=== PATIENT | female | born 1960 | race Two or more races ===

== ENCOUNTER 2018-10-04 15:19 | Emergency (ER) | payer BC ==
[~2018-10-04] VITALS: Ht 147.3 cm; Wt 61.2 kg
--- OUTSIDE RECORDS SUMMARY | 2018-10-04 15:22 | XMS REPORT ---
Author Author [facility] Address Unknown Phone Unavailable Care Team Providers Care Director Check Name Role Phone ARACELY SMITH PP Unavailable GRANT GARNICA Unavailable Unavailable Payers Payer Name Policy Type Policy Number Effective Date Expiration Date Problems This patient has no known problems. Allergies, Adverse Reactions, Alerts Allergy Name Allergy Type Status Severity Reaction(s) Onset Date Inactive Date Treating Clinician Comments No Known Allergies DA Active U 2017-10-31 00:00:00 Medications This patient has no known medications. Results Test Description Test Time Test Comments Text Results Atomic Results Result Comments URINALYSIS COMPLETE 2018-04-29 05:06:00 UA COLOR (test code=COLU) LIGHT YELLOW YELLOW UA APPEARANCE (test code=APPU) CLEAR CLEAR UA GLUCOSE DIPSTICK (test code=DGLUU) NEGATIVE mg/dL NEGATIVE UA BILIRUBIN DIPSTICK (test code=BILU) NEGATIVE mg/dL NEGATIVE UA KETONE DIPSTICK (test code=KETU) Negative mg/dL NEGATIVE UA SPECIFIC GRAVITY (test code=SGU) 1.014 1.001-1.035 UA BLOOD DIPSTICK (test code=THAIS) 2+ (Moderate) NEGATIVE UA PH DIPSTICK (test code=MONTSE) 5.0 5.0-8.0 UA PROTEIN DIPSTICK (test code=PROU) Negative mg/dL NEGATIVE UA UROBILINIOGEN DIPSTICK (test code=URO) NEGATIVE mg/dL NEGATIVE UA NITRITE DIPSTICK (test code=ROSI) NEGATIVE NEGATIVE UA LEUKOCYTE ESTERASE W REFLEX (test code=LEUUR) NEGATIVE NEGATIVE UA WBC (test code=WBCU) 0-5 #/HPF 0-5 UA RBC (test code=RBCU) 10-15 #/HPF 0-5 UA EPITHELIAL CELLS (test code=EPIU) FEW per HPF FEW UA BACTERIA (test code=BACU) FEW #/HPF NONE UA HYALINE CAST (test code=HYALU) 0-2 #/LPF 0-5 UA MUCUS (test code=MUCU) FEW #/LPF FEW Urine Source? Clean CatchB-TYPE NATRIURETIC [id number] 04:15:00* Test Item Value Reference Range Comments B-TYPE NATRIURETIC PEPTIDE (test code=BNP) 16.86 pgram/mL 0-100 BASIC METABOLIC [id number] 04:09:00* Test Item Value Reference Range Comments SODIUM (test code=NA) 142 mmol/L 136-145 POTASSIUM (test code=K) 3.4 mmol/L 3.5-5.1 CHLORIDE (test code=CL) 107.0 mmol/L 98-107 CARBON DIOXIDE (test code=CO2) 26.0 mmol/L 21-32 ANION GAP (test code=GAP) 12.4 10-20 GLUCOSE (test code=GLU) 105 mg/dL 74-106 BLOOD UREA NITROGEN (test code=BUN) 19 mg/dL 7-18 GLOMERULAR FILTRATION RATE (test code=GFR) > 60 mL/min >=60 Estimated GFR by using Modified MDRD formula.Chronic kidney disease is defined as either kidney damageor GFR <60 mL/min/1.73 m2 for >3 months. CREATININE (test code=CREAT) 0.60 mg/dL 0.55-1.02 Note change in reference range due to change in reagent. BUN/CREATININE RATIO (test code=BUN/CREA) 31.7 10-20 CALCIUM (test code=CA) 9.1 mg/dL 8.5-10.1 [id number] 04:09:00* Test Item Value Reference Range Comments CKMB (test code=CKMBT) < 1.0 ng/mL 0-6.0 [id number] 04:09:00* Test Item Value Reference Range Comments TROPONIN-I (test code=TROPI) <0.015 ng/mL 0-0.045 BASIC METABOLIC [id number] 03:59:00* Test Item Value Reference Range Comments SODIUM (test code=NA) 142 mmol/L 136-145 POTASSIUM (test code=K) 3.4 mmol/L 3.5-5.1 CHLORIDE (test code=CL) 107.0 mmol/L 98-107 CARBON DIOXIDE (test code=CO2) mmol/L 21-32 ANION GAP (test code=GAP) 10-20 GLUCOSE (test code=GLU) mg/dL 74-106 BLOOD UREA NITROGEN (test code=BUN) mg/dL 7-18 GLOMERULAR FILTRATION RATE (test code=GFR) mL/min >=60 CREATININE (test code=CREAT) mg/dL 0.55-1.02 BUN/CREATININE RATIO (test code=BUN/CREA) 10-20 CALCIUM (test code=CA) 9.1 mg/dL 8.5-10.1 [id number] 03:59:00* Test Item Value Reference Range Comments CKMB (test code=CKMBT) ng/mL 0-6.0 [id number] 03:59:00* Test Item Value Reference Range Comments TROPONIN-I (test code=TROPI) ng/mL 0-0.045 CBC W/AUTO [id number] 03:53:00* Test Item Value Reference Range Comments WHITE BLOOD CELL (test code=WBC) 7.4 K/mm3 4.5-12.5 RED BLOOD CELL (test code=RBC) 4.73 mill/mm3 3.7-5.2 HEMOGLOBIN (test code=HGB) 12.5 gram/dL 11.5-15.5 HEMATOCRIT (test code=HCT) 41.1 % 36.0-46.0 MEAN CELL VOLUME (test code=MCV) 86.9 fL 80-98 MEAN CELL HGB (test code=MCH) 26.4 picogram 27.0-33.0 MEAN CELL HGB CONCETRATION (test code=MCHC) 30.4 gram/dL 33.0-36.0 RED CELL DISTRIBUTION WIDTH (test code=RDW) 13.2 % 11.6-16.2 RED CELL DISTRIBUTION WIDTH SD (test code=RDW-SD) 41.6 fL 37.0-51.0 PLATELET COUNT (test code=PLT) 318 K/mm3 150-450 MEAN PLATELET VOLUME (test code=MPV) 10.3 fL 6.7-11.0 NEUTROPHIL % (test code=NT%) 52.2 % 39.0-69.0 IMMATURE GRANULOCYTE % (test code=IG%) 0.3 % 0.0-5.0 LYMPHOCYTE % (test code=LY%) 37.9 % 25.0-55.0 MONOCYTE % (test code=MO%) 6.5 % 0.0-10.0 EOSINOPHIL % (test code=EO%) 2.7 % 0.0-5.0 BASOPHIL % (test code=BA%) 0.4 % 0.0-1.0 NUCLEATED RBC % (test code=NRBC%) 0.0 % 0-0 NEUTROPHIL # (test code=NT#) 3.85 K/mm3 1.8-7.7 IMMATURE GRANULOCYTE # (test code=IG#) 0.02 x10 3/uL 0-0.03 LYMPHOCYTE # (test code=LY#) 2.80 K/mm3 1.0-5.0 MONOCYTE # (test code=MO#) 0.48 K/mm3 0-0.8 EOSINOPHIL # (test code=EO#) 0.20 K/mm3 0.0-0.5 BASOPHIL # (test code=BA#) 0.03 K/mm3 0.0-0.2 NUCLEATED RBC # (test code=NRBC#) 0.00 K/mm3 0.0-0.1 CBC W/AUTO [id number] 03:46:00* Test Item Value Reference Range Comments WHITE BLOOD CELL (test code=WBC) K/mm3 4.5-12.5 RED BLOOD CELL (test code=RBC) mill/mm3 3.7-5.2 HEMOGLOBIN (test code=HGB) 12.5 gram/dL 11.5-15.5 HEMATOCRIT (test code=HCT) 41.1 % 36.0-46.0 MEAN CELL VOLUME (test code=MCV) fL 80-98 MEAN CELL HGB (test code=MCH) picogram 27.0-33.0 MEAN CELL HGB CONCETRATION (test code=MCHC) gram/dL 33.0-36.0 RED CELL DISTRIBUTION WIDTH (test code=RDW) % 11.6-16.2 RED CELL DISTRIBUTION WIDTH SD (test code=RDW-SD) fL 37.0-51.0 PLATELET COUNT (test code=PLT) K/mm3 150-450 MEAN PLATELET VOLUME (test code=MPV) fL 6.7-11.0 NEUTROPHIL % (test code=NT%) % 39.0-69.0 IMMATURE GRANULOCYTE % (test code=IG%) % 0.0-5.0 LYMPHOCYTE % (test code=LY%) % 25.0-55.0 MONOCYTE % (test code=MO%) % 0.0-10.0 EOSINOPHIL % (test code=EO%) % 0.0-5.0 BASOPHIL % (test code=BA%) % 0.0-1.0 NEUTROPHIL # (test code=NT#) K/mm3 1.8-7.7 LYMPHOCYTE # (test code=LY#) K/mm3 1.0-5.0 MONOCYTE # (test code=MO#) K/mm3 0-0.8 EOSINOPHIL # (test code=EO#) K/mm3 0.0-0.5 BASOPHIL # (test code=BA#) K/mm3 0.0-0.2 - XR CHEST 2 [id number] 02:59:00 FAX: Maribel Rosenthal [phone] [place]: St: REG Name: JANY VALENCIA [facility] : 10/[birth year]/18 59 Age/S: 57/F [address] [facility] Unit #: [id number] Loc: [place] [address] Phys: Maribel Chen MD Acct: [id number] Dis Date: Status: REG ER PHONE #: [phone] Exam Date: 04/29/2018 025 FAX #: [phone] Reason: chest pain EXAMS: CPT CODE: [id number] XR CHEST 2 V 69319 EXAM: - XR CHEST 2 V HISTORY: Chest pain. COMPARISON: None available time of interpre tation. FINDINGS: PA and lateral view of the chest i s provided. Heart size and vascularity are within normal limits. Th e lungs are clear of focal consolidation. No effusion, pneumothorax, or ac susan osseous abnormality. IMPRESSION: No radiogra phic evidence of acute cardiopulmonary process. Electronically Claudia d by Gt Blum MD on 04/29/2018 at 0259 Reported an d signed by: Gt Blum MD CC: Maribel Chen MD Technologist: Sofi Bledsoe Trnscrd Date/Time/By: 04/29/2018 (025) : By: [email or web address] Orig Print D/T: S: 04/29/2018 (0305) PAGE 1 Signed Report Urinalysis Complete 2016-10-23 21:33:00* Test Item Value Reference Range Comments Color (test code=COLOR) Yellow Yellow,Straw,Pl yellow Clarity (test code=CLAR) Clear Clear Specific [place] (test code=SPGR) 1.010 1.001-1.035 pH (test code=PH) 7.0 5.0-9.0 Ketone (test code=KET) Negative mg/dL Negative Glucose (test code=GLUCUR) Negative mg/dL Negative Protein (test code=PROT) Negative mg/dL Negative Bilirubin (test code=BILI) Negative mg/dL Negative Occult Blood (test code=UDOB) Small Negative Urobilinogen (test code=UROB) 0.2 mg/dL 0.2-1.0 Nitrite (test code=NIT) Negative Negative Leuk Esterase (test code=LEUK) Large Negative Ictotest (test code=ICTOTEST) Negative Negative,Confirmed Negative Clinitest (test code=CLINITEST) Not Indicated Micros Exam (test code=MEXAM) Indicated Epithelial Cells (test code=EPI) 3-5 /LPF 0-30 WBC, Urine (test code=UWBC) 2-5 /HPF 0-5 RBC, Urine (test code=URBC) 2-5 /HPF 0-5 Amorph Deposit (test code=AMORD) None /HPF Mucous, Urine (test code=UMUC) Trace /HPF Bacteria (test code=BACT) Few /HPF Yeast (test code=YEAST) None Seen /HPF Trichomonas (test code=TRICH) None Seen /HPF Casts (test code=CASTS) None /HPF Crystals (test code=LESLIE) None /HPF Comprehensive Metabolic [id number] 21:20:00* Test Item Value Reference Range Comments Sodium (test code=NA) 139 mmol/L 135-145 Potassium (test code=K) 4.0 mmol/L 3.5-5.1 Chloride (test code=CL) 101 mmol/L 98-105 Carbon Dioxide (test code=CO2) 25 mmol/L 22-29 Glucose (test code=GLU) 114 mg/dL 70-115 Blood Urea Nitrogen (test code=BUN) 18 mg/dL 6-20 Creatinine (test code=CREAT) 0.6 mg/dL 0.5-0.9 Calcium (test code=CA) 9.7 mg/dL 8.3-10.5 Prot Total (test code=TP) 7.4 g/dL 6.4-8.3 Albumin (test code=ALB) 4.5 g/dL 3.5-5.2 A/G Ratio (test code=AGRATIO) 1.6 Ratio Globulin (test code=GLOB) 2.9 2.9-3.1 Bili Total (test code=TBIL) 0.4 mg/dL 0.1-0.9 Alk Phos (test code=APHOS) 89 U/L 35-104 AST (test code=AST) 24 U/L 1-32 ALT (test code=ALT) 39 U/L 1-33 BUN/Creatinine Ratio (test code=BCRATIO) 30.0 Anion Gap (test code=AGAP) 13 mmol/L 7-16 Estimated GFR (test code=GFR) >60 mL/min/1.73m2 eGFR (estimated Glomerular Filtration Rate) is an estimated value,calculated from the patient's serum creatinine using the MDRD equation.It is NOT the patient's actual GFR. The eGFR provides a more clinicallyuseful measure of kidney disease than serum creatinine alone.This calculation takes sex and race into account, if the informationis provided. If the race is not provided, and the patient isAfrican-Thai, multiply by 1.212. If sex is not provided, and thepatient is female, multiply by 0.742. Results for patients <18 years ofage have not been validated by the MDRD study and should be interpretedwith caution.eGFR Result Interpretation:eGFR > or=60 is in the Normal RangeeGFR < 60 may mean kidney diseaseeGFR < 15 may mean kidney failureRanges recommended by the National Kidney Foundat ion,http://nkdep.nih.gov CBC with [id number] 21:18:00* Test Item Value Reference Range Comments WBC (test code=WBC) 7.7 K/cumm 4.4-10.5 RBC (test code=RBC) 4.27 M/cumm 3.75-5.20 Hemoglobin (test code=HGB) 11.8 gm/dL 12.2-14.8 Hematocrit (test code=HCT) 35.2 % 36.5-44.4 MCV (test code=MCV) 82.5 fL 80-100 MCH (test code=MCH) 27.8 pg 27.0-32.5 MCHC (test code=MCHC) 33.7 g/dL 32.0-37.5 RDW (test code=RDW) 12.6 % 11.5-14.5 Platelet Count (test code=PLTCT) 308 K/cumm 140-440 MPV (test code=MPV) 7.5 fL Diff Method (test code=DIFFM) Auto Neutrophil (test code=NEUT) 54.9 % 36-70 Lymphocyte (test code=LYMPH) 38.7 % 12-44 Monocyte (test code=MONO) 4.5 % 0-11 Eosinophil (test code=EOS) 1.4 % 0-7 Basophil (test code=BASO) 0.4 % 0-2 Neutro Abs (test code=ANEUT) 4.3 K/cumm 1.6-7.4 Lymph Abs (test code=ALYMPH) 3.0 K/cumm 0.5-4.6 [place] Abs (test code=AMONO) 0.4 K/cumm 0.0-1.2 Eos Abs (test code=AEOS) 0.11 K/cumm 0.00-0.74 Baso Abs (test code=ABASO) 0.0 K/cumm 0.00-0.21
[2018-10-04] MEDS ORDERED: KETOROLAC TROMETHAMINE 30 MG/ML VIAL IV STA (16:48)
[2018-10-04] MEDS ORDERED: KETOROLAC TROMETHAMINE 30 MG/ML VIAL ONE (17:07)
--- NOTE | 2018-10-04 18:09 | Diagnostic Imaging Report ---
EXAM: CT of the abdomen and pelvis WITHOUT contrast HISTORY: Abdominal pain, right flank COMPARISON: None available. TECHNIQUE: The abdomen and pelvis were scanned utilizing a multidetector helical scanner. Coronal and sagittal reformats are available. PROTOCOL: Renal colic IV CONTRAST: None, which limits sensitivity and specificity of evaluation of the soft tissues and vascular structures. ORAL CONTRAST: None, which limits sensitivity and specificity of evaluation of the bowel. RADIATION DOSE: Total DLP: 551.46 mGy*cm Estimated effective dose: (DLP x 0.015 x size factor) Dose modulation, iterative reconstruction, and/or weight based adjustment of the mA/kV was utilized to reduce the radiation dose to as low as reasonably achievable. COMPLICATIONS: None FINDINGS: LOWER THORAX: Unremarkable. HEPATOBILIARY: No definite focal hepatic lesions. No biliary ductal dilatation. The gallbladder is unremarkable. SPLEEN: No splenomegaly. PANCREAS: No focal masses or ductal dilatation. ADRENALS: No adrenal nodule. KIDNEYS/URETERS: No hydronephrosis or renal stone. Punctate calcific density in the region of the distal right ureter, series 2 image 70, appears slightly anterior to the ureter. PELVIC ORGANS/BLADDER: The urinary bladder is predominantly decompressed. PERITONEUM / RETROPERITONEUM: No free air or fluid. GI TRACT: The stomach is predominantly decompressed, which limits evaluation. A few scattered colonic diverticuli, prominent fat stranding surrounding a sigmoid colon diverticulum (series 2 image 70). LYMPH NODES: No pathologically enlarged lymph nodes. VESSELS: Diffuse scattered atherosclerotic vascular calcifications. BONES and JOINTS: No aggressive osseous lesion or acute fracture. SOFT TISSUES: Unremarkable. IMPRESSION: 1. Acute sigmoid diverticulitis. Follow-up gastroenterology consultation after resolution of the acute process may be warranted to discuss potential colon cancer screening. 2. Punctate calcific density in the region of the distal right ureter, most likely represents a small phlebolith just anterior to the ureter. Signed by: Rhianna Negrtee.Smiley., M.M.M. on 10/04/2018 6:06 PM
[2018-10-04 18:23] VITALS: BP 151/88
== END 2018-10-04 18:26 | disposition home or self-care (01) ==
LOC: FSED 15:19
DX: K57.92 Diverticulitis of intestine, part unspecified, without perforation or abscess without bleeding (principal); K21.9 Gastro-esophageal reflux disease without esophagitis; K76.0 Fatty (change of) liver, not elsewhere classified; Z86.73 Personal history of transient ischemic attack (TIA), and cerebral infarction without residual deficits
CPT/HCPCS: 74176; 80053; 81003; 85025; 99284; J1885

== ENCOUNTER 2018-10-07 01:12 | Emergency (ER) | payer BC ==
[~2018-10-07] VITALS: Ht 147.3 cm; Wt 61.2 kg
[2018-10-07] MEDS ORDERED: ONDANSETRON HCL INJ 2MG/ML 2ML 2 MG/ML VIAL IV STA (01:45)
[2018-10-07] MEDS ORDERED: MORPHINE SULFATE 5 MG/ML VIAL IV ONE (01:45)
[2018-10-07] MEDS ORDERED: SODIUM CHLORIDE 0.9% 1000ML 1,000 ML IV SCH (01:45)
[2018-10-07] MEDS ORDERED: DIATRIZOATE MEGL/DIATRIZOA SOD 30 ML BTL PO ONE (01:50)
[2018-10-07] MEDS ORDERED: ONDANSETRON HCL INJ 2MG/ML 2ML 2 MG/ML VIAL ONE (01:52)
[2018-10-07] MEDS ORDERED: SODIUM CHLORIDE 0.9% 1000ML 1,000 ML ONE (01:53)
[2018-10-07] MEDS ORDERED: MORPHINE SULFATE INJ 4 MG/ML INJ 1ML ONE (01:53)
--- NOTE | 2018-10-07 02:40 | NUR ---
PT ASSISTED TO BATHROOM X 3, ASKED PT HOW LONG HAS SHE BEEN HAVING FREQ URINATION, PT STATED TODAY. DENIES BURNING URINATION AT THIS TIME. URINE COLLECTED FOR UA
[2018-10-07] MEDS ORDERED: SODIUM CHLORIDE 0.9% 50ML 50 ML ONE (02:41)
[2018-10-07] MEDS ORDERED: IOPAMIDOL 370 MG/ML 200 ML INFUS..BTL INJ ONE (02:41)
--- NOTE | 2018-10-07 03:47 | Diagnostic Imaging Report ---
EXAMINATION: CT of the abdomen and pelvis with contrast. TECHNIQUE: Spiral CT images of the abdomen and pelvis were performed from the lung bases to the lesser trochanters after the intravenous administration of 100 cc Isovue-370 Coronal and sagittal reformatted images were obtained. COMPARISON: 10/04/[address] abdomen and pelvis without contrast CLINICAL HISTORY:Abdominal pain, history of diverticulitis DISCUSSION: ABDOMEN/PELVIS: LOWER THORAX:Unremarkable. HEPATOBILIARY: Focal steatosis adjacent to the falciform ligament. No additional focal hepatic lesion or intrahepatic biliary ductal dilatation. Gallbladder is unremarkable. SPLEEN: No splenomegaly. PANCREAS: No focal masses or ductal dilatation. ADRENALS: No adrenal nodules. KIDNEYS/URETERS: No hydronephrosis, stones, or solid mass lesions. Right extrarenal pelvis unchanged. PELVIC ORGANS/BLADDER: Urinary bladder is unremarkable. Uterus is not identified and has presumably been resected. PERITONEUM/RETROPERITONEUM: Trace free fluid tracking into the deep pelvis. No pneumoperitoneum. LYMPH NODES: No pelvic sidewall, retroperitoneal, or mesenteric lymphadenopathy. VESSELS: Abdominal aorta, major branch vessels, and iliac arterial systems are well-visualized and patent. Portal vein, splenic vein, and central superior mesenteric vein are patent. GI TRACT: As before, short segment wall thickening and inflammation of the sigmoid colon exemplified on series 2 image 69. Diverticula elsewhere within the descending colon without wall thickening area no extraluminal gas or drainable fluid collection. Appendix is not identified in keeping with appendectomy. BONES AND SOFT TISSUE: No osseous destructive lesions. No focal soft tissue abnormalities. IMPRESSION: Acute sigmoid diverticulitis, similar in appearance to 10/04/2018. No perforation or drainable fluid collection. As before, follow-up gastroenterology consultation should be considered after treatment for discussion of colon cancer screening. Signed by: Dr. Jeyson Barksdale M.D. on 10/07/2018 3:44 AM
[2018-10-07] MEDS ORDERED: ULTRAM50 MG PO (03:57)
[2018-10-07 04:16] VITALS: BP 148/79
== END 2018-10-07 04:18 | disposition home or self-care (01) ==
LOC: FSED 01:12
DX: R10.31 Right lower quadrant pain (principal); K57.32 Diverticulitis of large intestine without perforation or abscess without bleeding
CPT/HCPCS: 74177; 80053; 81003; 85025; 96374; 96376; 99284; J2270; J2405; J7030; Q9967

== ENCOUNTER 2019-01-12 15:38 | Emergency (ER) | payer BC ==
[~2019-01-12] VITALS: Ht 147.3 cm; Wt 61.2 kg
[~2019-01-12 15:38] MED LIST: ULTRAM50 MG PO
[2019-01-12 16:18] LABS: BILIRUBIN,URINE NEGATIVE (NEGATIVE); CLARITY,URINE HAZY (CLEAR); COLOR,URINE YELLOW (YELLOW); KETONES,URINE NEGATIVE (NEGATIVE); LEUKOCYTE ESTERASE ,URINE NEGATIVE (NEGATIVE); NITRITE,URINE NEGATIVE (NEGATIVE); PROTEIN,URINE DIPSTICK TRACE (NEGATIVE); URINE UROBILINOGEN 0.2 mg/dL (0.2 - 1)
[2019-01-12 16:26] LABS: AMORPHOUS SEDIMENT,URINE FEW (FEW); BACTERIA,URINE FEW /HPF; EPITHELIAL CELLS,URINE FEW /LPF; HYALINE CASTS 0-1 (0-1); RBC,URINE 0-5 /HPF (0-5); WBC,URINE (MAN) 0-5 /HPF (0-5)
[2019-01-12] MEDS ORDERED: SODIUM CHLORIDE 0.9% 1000ML 1,000 ML IV STA (16:34)
[2019-01-12] MEDS ORDERED: DIATRIZOATE MEGL/DIATRIZOA SOD 30 ML BTL PO ONE (16:53)
[2019-01-12] MEDS ORDERED: PANTOPRAZOLE 40 MG 10ML VIAL IV ONE (17:00)
[2019-01-12] MEDS ORDERED: ONDANSETRON HCL INJ 2MG/ML 2ML 2 MG/ML VIAL IV ONE (17:00)
[2019-01-12 17:04] LABS: BASOPHILS % 0.3 % (0.0-1.0); EOSINOPHILS # (AUTO) 0.1 (0.0-0.4); EOSINOPHILS % 1.5 % (0.0-6.0); HEMATOCRIT 39.1 % (34.2-44.1); HEMOGLOBIN 12.5 g/dL (12.0-16.0); LYMPHOCYTES # (AUTO) 3.1 (1.0-3.2); LYMPHOCYTES % 35.7 % (18.0-39.1); MEAN CORPUSCULAR HEMOGLOBIN 27.3 pg (28-32); MEAN CORPUSCULAR VOLUME 85.4 fL (81-99); MONOCYTES # (AUTO) 0.6 (0.2-0.8); MONOCYTES % 7.1 % (4.4-11.3); NEUTROPHILS # (AUTO) 4.8 (2.1-6.9); NEUTROPHILS % 55.2 % (38.7-80.0); PLATELET COUNT 324 x10e3/uL (140-360); RED BLOOD COUNT 4.58 x10e6/uL (3.6-5.1); RED CELL DISTRIBUTION WIDTH 13.1 % (11.7-14.4)
[2019-01-12 17:15] LABS: INR 0.87; PROTHROMBIN TIME 12.3 seconds (11.9-14.5)
[2019-01-12 17:16] LABS: PARTIAL THROMBOPLASTIN TIME 32.9 seconds (23.8-35.5)
[2019-01-12 17:24] LABS: ALANINE AMINOTRANSFERASE 32 IU/L (0-55); ALKALINE PHOSPHATASE 102 IU/L (40-150); ANION GAP 14.7 mmol/L (8-16); BLOOD UREA NITROGEN 12 mg/dL (7-26); BUN/CREATININE RATIO 18 (6-25); CARBON DIOXIDE 25 mmol/L (22-29); CHLORIDE 104 mmol/L (98-107); CREATINE KINASE 63 IU/L (29-168); CREATININE, SERUM 0.67 mg/dL (0.57-1.11); EST GLOMERULAR FILTRATION RATE > 60 ML/MIN (60-); GLUCOSE 93 mg/dL (74-118); LIPASE 17 U/L (8-78); MAGNESIUM 2.2 MG/DL (1.3-2.1); POTASSIUM 3.7 mmol/L (3.5-5.1); SODIUM 140 mmol/L (136-145)
--- NOTE | 2019-01-12 17:24 | Diagnostic Imaging Report ---
EXAMINATION: CHEST SINGLE (PORTABLE) INDICATION: Abdominal pain. COMPARISON: None FINDINGS: TUBES and LINES: None. LUNGS: Low lung volumes. There is no evidence of pneumonia or pulmonary edema. PLEURA: No pleural effusion or pneumothorax. HEART AND MEDIASTINUM: The cardiomediastinal silhouette is unremarkable. BONES AND SOFT TISSUES: No acute osseous lesion. Soft tissues are unremarkable. UPPER ABDOMEN: No free air under the diaphragm. IMPRESSION: No acute radiographic abnormality. Signed by: Dr. Iam Booth MD on 01/12/2019 5:21 PM
[2019-01-12] MEDS ORDERED: MORPHINE SULFATE INJ 4 MG/ML INJ 1ML IV PRN (17:30)
[2019-01-12] MEDS ORDERED: IOPAMIDOL 370 MG/ML 200 ML INFUS..BTL INJ ONE (18:33)
[2019-01-12] MEDS ORDERED: SODIUM CHLORIDE 0.9% 50ML 50 ML ONE (18:33)
--- NOTE | 2019-01-12 19:26 | Diagnostic Imaging Report ---
EXAM: CT Abdomen and Pelvis WITH contrast INDICATION: ^abd pain, N/V ^[id number] ^1750 COMPARISON: CT dated 10/07/2018 TECHNIQUE: Abdomen and pelvis were scanned utilizing a multidetector helical scanner from the lung base to the pubic symphysis after administration of IV contrast. Coronal and sagittal reformations were obtained. Dose modulation, iterative reconstruction, and/or weight based adjustment of the mA/kV was utilized to reduce the radiation dose to as low as reasonably achievable. Routine protocol was performed. Scan was performed when during portal venous phase. IV CONTRAST: 100 mL of Isovue-370 ORAL CONTRAST: Gastroview COMPLICATIONS: None RADIATION DOSE: Total DLP: 338.67 mGy*cm Estimated effective dose: (DLP x 0.015 x size factor) mSv CTDIvol has been reviewed. It is below the limits set by the Radiation Protocol Committee (RPC). FINDINGS: LINES and TUBES: None. LOWER THORAX: Unremarkable HEPATOBILIARY: No focal hepatic lesions. No biliary ductal dilation. GALLBLADDER: No radio-opaque stones or sludge. No wall thickening. SPLEEN: No splenomegaly. PANCREAS: No focal masses or ductal dilatation. ADRENALS: No adrenal nodules KIDNEYS/URETERS: Kidneys enhance symmetrically. Unchanged bilateral mild hydroureteronephrosis. No renal mass. Bilateral subcentimeter too small to characterize hypodensities. No stones. GI TRACT: No abnormal distention, wall thickening, or evidence of bowel obstruction. Appendix is not clearly identified. There is however no fat stranding or adenopathy in the right lower quadrant to suggest appendicitis. PELVIC ORGANS/BLADDER: Unremarkable. LYMPH NODES: No lymphadenopathy. VESSELS: Unremarkable. PERITONEUM / RETROPERITONEUM: No free air or fluid. BONES: Unremarkable. SOFT TISSUES: Unremarkable. IMPRESSION: 1. No good bladder process in the abdomen/pelvis. 2. Unchanged bilateral mild hydroureteronephrosis without evidence of obstructive urolithiasis. Signed by: Dr. Nathanael Coon MD on 01/12/2019 7:23 PM
[2019-01-12 20:36] VITALS: BP 145/96
== END 2019-01-12 21:04 | disposition home or self-care (01) ==
LOC: ER 15:38
DX: R10.32 Left lower quadrant pain (principal); R11.0 Nausea; R19.7 Diarrhea, unspecified; K92.9 Disease of digestive system, unspecified; K21.9 Gastro-esophageal reflux disease without esophagitis
CPT/HCPCS: 36415; 71045; 74177; 80053; 81001; 82550; 82553; 83690; 83735; 84484; 85025; 85610; 85730; 87086; 99284; C9113; J2270; J2405; J7030; Q9967

== ENCOUNTER 2019-03-02 13:31 | Inpatient (IN) | payer BC ==
[~2019-03-02] VITALS: Ht 147.3 cm; Wt 61.2 kg
[~2019-03-02 13:31] MED LIST changes: +CIPRO500 MG PO; +DICYCLOMINE HCL20 MG PO; +FLAGYL500 MG PO; +ONDANSETRON ODT8 MG PO; +TYLENOL WITH C1 EACH PO
[2019-03-02] MEDS ORDERED: SODIUM CHLORIDE 0.9% 1000ML 1,000 ML IV STA ×2 (16:30→16:39)
[2019-03-02] MEDS ORDERED: SODIUM CHLORIDE 0.9% 1000ML 1,000 ML ONE (16:40)
[2019-03-02] MEDS ORDERED: MORPHINE SULFATE 2 MG/ML SYR 1ML IV NR (16:45)
[2019-03-02] MEDS ORDERED: DIATRIZOATE MEGL/DIATRIZOA SOD 30 ML BTL PO ONE (16:50)
[2019-03-02] MEDS ORDERED: ONDANSETRON HCL INJ 2MG/ML 2ML 2 MG/ML VIAL IV NR (17:00)
[2019-03-02 17:01] LABS: BASOPHILS % 0.5 % (0.0-1.0); EOSINOPHILS # (AUTO) 0.1 (0.0-0.4); EOSINOPHILS % 1.7 % (0.0-6.0); HEMATOCRIT 41.2 % (34.2-44.1); HEMOGLOBIN 13.3 g/dL (12.0-16.0); LYMPHOCYTES # (AUTO) 2.8 (1.0-3.2); LYMPHOCYTES % 42.3 % (18.0-39.1); MEAN CORPUSCULAR HEMOGLOBIN 27.3 pg (28-32); MEAN CORPUSCULAR HGB CONC 32.3 g/dL (31-35); MEAN CORPUSCULAR VOLUME 84.4 fL (81-99); MONOCYTES # (AUTO) 0.5 (0.2-0.8); MONOCYTES % 7.7 % (4.4-11.3); NEUTROPHILS # (AUTO) 3.2 (2.1-6.9); NEUTROPHILS % 47.6 % (38.7-80.0); PLATELET COUNT 356 x10e3/uL (140-360); RED BLOOD COUNT 4.88 x10e6/uL (3.6-5.1)
[2019-03-02 17:14] LABS: ALANINE AMINOTRANSFERASE 40 IU/L (0-55); ALBUMIN 4.1 g/dL (3.5-5.0); ALBUMIN/GLOBULIN RATIO 1.1 (0.8-2.0); ALKALINE PHOSPHATASE 82 IU/L (40-150); ANION GAP 14.9 mmol/L (8-16); BLOOD UREA NITROGEN 11 mg/dL (7-26); BUN/CREATININE RATIO 16 (6-25); CALCIUM 9.8 mg/dL (8.4-10.2); CARBON DIOXIDE 24 mmol/L (22-29); CHLORIDE 106 mmol/L (98-107); CREATININE, SERUM 0.69 mg/dL (0.57-1.11); EST GLOMERULAR FILTRATION RATE > 60 ML/MIN (60-); GLUCOSE 86 mg/dL (74-118); POTASSIUM 3.9 mmol/L (3.5-5.1); SODIUM 141 mmol/L (136-145)
[2019-03-02 17:18] LABS: CLARITY,URINE SL CLOUDY (CLEAR); COLOR,URINE YELLOW (YELLOW); LEUKOCYTE ESTERASE ,URINE NEGATIVE (NEGATIVE); NITRITE,URINE NEGATIVE (NEGATIVE); PROTEIN,URINE DIPSTICK NEGATIVE (NEGATIVE)
[2019-03-02 17:19] LABS: BACTERIA,URINE RARE /HPF; BILIRUBIN,URINE NEGATIVE (NEGATIVE); EPITHELIAL CELLS,URINE FEW /LPF; KETONES,URINE NEGATIVE (NEGATIVE); RBC,URINE 0-5 /HPF (0-5); URINE UROBILINOGEN 0.2 mg/dL (0.2 - 1)
[2019-03-02] MEDS: PIPER-TAZ 3.375 GM 50 ML IV SCH (18:10)
[2019-03-02] MEDS ORDERED: IOPAMIDOL 370 MG/ML 200 ML INFUS..BTL INJ ONE (18:20)
[2019-03-02] MEDS ORDERED: SODIUM CHLORIDE 0.9% 50ML 50 ML ONE (18:20)
[2019-03-02] MEDS ORDERED: DIATRIZOATE MEGL/DIATRIZOA SOD 120 ML BTL PO ONE (18:21)
[2019-03-02] MEDS: METRONIDAZOLE 500MG/NS 100ML 100 ML IV SCH ×4 (20:00→21:38)
--- NOTE | 2019-03-02 20:09 | Diagnostic Imaging Report ---
EXAM: CT Abdomen and Pelvis WITH IV contrast and oral and rectal enteric contrast INDICATION: Stool in urine, diverticulitis, lower abdominal pain COMPARISON: Abdominal CT 02/11/2019, 01/12/2019 TECHNIQUE: Abdomen and pelvis were scanned utilizing a multidetector helical scanner from the lung base to the pubic symphysis after administration of IV contrast. Coronal and sagittal reformations were obtained. Routine protocol was performed. Scan was performed when during portal venous phase. Oral contrast was ingested and rectal contrast was instilled prior to the scan. IV CONTRAST: 100 mL of Isovue 370 ORAL CONTRAST: Gastrografin RECTAL CONTRAST: Gastrografin COMPLICATIONS: None RADIATION DOSE: Total DLP: 347 mGy*cm Estimated effective dose: (DLP x 0.015 x size factor) mSv CTDIvol has been reviewed. It is below the limits set by the Radiation Protocol Committee (RPC). Dose modulation, iterative reconstruction, and/or weight based adjustment of the mA/kV was utilized to reduce the radiation dose to as low as reasonably achievable. FINDINGS: LINES and TUBES: A rectal catheter tip in the distal rectum. LOWER THORAX: Unremarkable HEPATOBILIARY: Diffuse hepatic hypoattenuation. No focal hepatic lesions. No biliary ductal dilation. GALLBLADDER: No radio-opaque stones or sludge. No wall thickening. SPLEEN: No splenomegaly. PANCREAS: No focal masses or ductal dilatation. ADRENALS: No adrenal nodules KIDNEYS/URETERS: Kidneys enhance symmetrically. No hydronephrosis. No cystic or solid mass lesions. No stones. Unchanged appearance of the right extrarenal pelvis. GI TRACT: Mild wall thickening and pericolonic fat stranding in the sigmoid colon. Inflammatory changes about the left vaginal cuff and there appears to be contrast within the cranial aspect of the vagina(seen best on coronal series 301 images 50-55, also seen on series 2 image 75 and 76, and series 300 image 61). No abnormal distention or evidence of bowel obstruction. A few distal colonic diverticuli. Appendix is not seen, no inflammation in the right lower quadrant. PELVIC ORGANS/BLADDER: The urinary bladder is partially distended. No contrast within the bladder lumen. The bladder wall is smooth and thin. There has been hysterectomy. No adnexal masses. LYMPH NODES: No lymphadenopathy. VESSELS: Unremarkable. PERITONEUM / RETROPERITONEUM: No free air or fluid. BONES: Unremarkable. SOFT TISSUES: There is a fat containing para-umbilical hernia. IMPRESSION: Persistent findings of sigmoid diverticulitis, a colovaginal fistula is suspected. Patient has had hysterectomy. Diverticulitis inflammation abuts the vaginal cuff and there appears to be contrast in the proximal vagina. Urinary bladder is unremarkable. No evidence of colovesicular fistula. Recommend speculum exam. Hepatic steatosis. Signed by: Porfirio Armenta DO on 03/02/2019 8:07 PM
[2019-03-02] MEDS: SODIUM CHLORIDE 0.9% 1000ML 1,000 ML IV SCH (22:05)
[2019-03-02] MEDS: LEVOFLOXACIN 500MG/D5W 100ML IV SCH (22:05)
[2019-03-02 22:08] VITALS: BP 126/86
[2019-03-02 23:31] VITALS: BP 134/97
[2019-03-02] MEDS ORDERED: OMEPRAZOLE40 MG PO (23:39)
[2019-03-03] VITALS (8 sets, daily range): BP systolic 103–147; BP diastolic 63–100
[2019-03-03] MEDS: PIPER-TAZ 3.375 GM 50 ML IV SCH ×5 (00:26→23:49)
[2019-03-03] MEDS: MORPHINE SULFATE 2 MG/ML SYR 1ML IV PRN ×2 (00:35→12:39)
[2019-03-03] MEDS: METRONIDAZOLE 500MG/NS 100ML 100 ML IV SCH ×4 (01:21→19:57)
[2019-03-03] MEDS ORDERED: OMEPRAZOLE 20 MG CAP PO STA (02:05)
[2019-03-03] MEDS: SODIUM CHLORIDE 0.9% 1000ML 1,000 ML IV SCH ×2 (04:31→10:09)
[2019-03-03 05:52] LABS: BASOPHILS % 0.3 % (0.0-1.0); EOSINOPHILS # (AUTO) 0.2 (0.0-0.4); EOSINOPHILS % 2.4 % (0.0-6.0); HEMATOCRIT 35.6 % (34.2-44.1); HEMOGLOBIN 11.4 g/dL (12.0-16.0); LYMPHOCYTES # (AUTO) 2.3 (1.0-3.2); LYMPHOCYTES % 37.2 % (18.0-39.1); MEAN CORPUSCULAR HEMOGLOBIN 27.7 pg (28-32); MEAN CORPUSCULAR VOLUME 86.6 fL (81-99); MONOCYTES # (AUTO) 0.6 (0.2-0.8); MONOCYTES % 8.8 % (4.4-11.3); NEUTROPHILS # (AUTO) 3.2 (2.1-6.9); PLATELET COUNT 301 x10e3/uL (140-360); RED BLOOD COUNT 4.11 x10e6/uL (3.6-5.1)
[2019-03-03] MEDS ORDERED: CEFTRIAXONE SOD 1 GM/NS 50 ML 50 ML IV SCH (06:00)
[2019-03-03] MEDS ORDERED: ACETAMINOPHEN 325 MG TAB PO PRN (06:15)
[2019-03-03 06:22] LABS: ALANINE AMINOTRANSFERASE 35 IU/L (0-55); ALBUMIN 3.4 g/dL (3.5-5.0); ALBUMIN/GLOBULIN RATIO 1.1 (0.8-2.0); ALKALINE PHOSPHATASE 57 IU/L (40-150); ANION GAP 11.6 mmol/L (8-16); BLOOD UREA NITROGEN 7 mg/dL (7-26); BUN/CREATININE RATIO 11 (6-25); CALCIUM 9.1 mg/dL (8.4-10.2); CARBON DIOXIDE 26 mmol/L (22-29); CHLORIDE 107 mmol/L (98-107); CREATININE, SERUM 0.65 mg/dL (0.57-1.11); EST GLOMERULAR FILTRATION RATE > 60 ML/MIN (60-); GLUCOSE 62 mg/dL (74-118); POTASSIUM 3.6 mmol/L (3.5-5.1); SODIUM 141 mmol/L (136-145)
[2019-03-03] MEDS ORDERED: PANTOPRAZOLE SOD 40 MG TABEC PO SCH (09:00)
[2019-03-03] MEDS: ACETAMINOPHEN/CODEINE 300MG - 30MG TAB PO PRN ×2 (09:59→16:15)
[2019-03-03] MEDS: PANTOPRAZOLE SOD 40 MG TABEC PO SCH (09:59)
[2019-03-03] MEDS: ONDANSETRON HCL INJ 2MG/ML 2ML 2 MG/ML VIAL IV PRN ×2 (12:39→16:57)
--- NOTE | 2019-03-03 18:49 | Consultation ---
DATE OF CONSULTATION: 03/03/2019 CHIEF COMPLAINT: Lower abdominal pain with vaginal drainage. HISTORY OF PRESENT ILLNESS: This patient is a 58-year-old female with history of diverticulitis, recurrently for the last year x2. The patient is complaining of lower abdominal pain with vaginal discharge of fecal matter in the last few days. No fevers. No chills. She is positive for diarrhea. PAST MEDICAL HISTORY: Negative. PAST SURGICAL HISTORY: Positive for and hysterectomy. ALLERGIES: THE PATIENT HAD NO DRUG ALLERGIES. SOCIAL HABITS: She does not smoke or drink. PHYSICAL EXAMINATION: VITAL SIGNS: Afebrile. The patient has stable vital signs. GENERAL: She is awake, alert, and in no apparent distress. HEENT: Sclerae anicteric. NECK: Supple. LUNGS: Clear. HEART: Regular rate and rhythm. ABDOMEN: Soft with mild guarding in suprapubic regions. No rebound tenderness. EXTREMITIES: No cyanosis or edema. LABORATORY DATA: White cell count 6 and hemoglobin 11. Creatinine of 0.6. CT of the abdomen show sigmoid diverticulitis with possible colovaginal fistula. 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 PLAN: Continue IV antibiotics. We will evaluate the patient to confirm fistula and possible sigmoid resection. Jeyson Hare MD DNL/MODL /[id number]
[2019-03-03] MEDS ORDERED: MORPHINE SULFATE 2 MG/ML SYR 1ML IV PRN (20:45)
[2019-03-03] MEDS: LEVOFLOXACIN 500MG/D5W 100ML IV SCH (21:50)
[2019-03-04] VITALS (8 sets, daily range): BP systolic 105–168; BP diastolic 61–92
[2019-03-04] MEDS: METRONIDAZOLE 500MG/NS 100ML 100 ML IV SCH ×4 (02:00→20:45)
[2019-03-04] MEDS: ONDANSETRON HCL INJ 2MG/ML 2ML 2 MG/ML VIAL IV PRN (02:41)
[2019-03-04 02:48] LABS: BASOPHILS % 0.5 % (0.0-1.0); EOSINOPHILS # (AUTO) 0.1 (0.0-0.4); EOSINOPHILS % 1.5 % (0.0-6.0); HEMATOCRIT 38.4 % (34.2-44.1); HEMOGLOBIN 12.3 g/dL (12.0-16.0); LYMPHOCYTES # (AUTO) 1.7 (1.0-3.2); LYMPHOCYTES % 28.9 % (18.0-39.1); MEAN CORPUSCULAR HEMOGLOBIN 27.1 pg (28-32); MEAN CORPUSCULAR VOLUME 84.6 fL (81-99); MONOCYTES # (AUTO) 0.5 (0.2-0.8); MONOCYTES % 8.3 % (4.4-11.3); NEUTROPHILS # (AUTO) 3.6 (2.1-6.9); NEUTROPHILS % 60.6 % (38.7-80.0); PLATELET COUNT 320 x10e3/uL (140-360); RED BLOOD COUNT 4.54 x10e6/uL (3.6-5.1); RED CELL DISTRIBUTION WIDTH 12.9 % (11.7-14.4)
[2019-03-04 03:30] LABS: THYROID STIMULATING HORMONE 1.809 uIU/mL (0.350-4.940)
[2019-03-04 04:02] LABS: ANION GAP 14.5 mmol/L (8-16); BLOOD UREA NITROGEN 5 mg/dL (7-26); BUN/CREATININE RATIO 8 (6-25); CARBON DIOXIDE 23 mmol/L (22-29); CHLORIDE 102 mmol/L (98-107); CREATININE, SERUM 0.64 mg/dL (0.57-1.11); EST GLOMERULAR FILTRATION RATE > 60 ML/MIN (60-); GLUCOSE 96 mg/dL (74-118); POTASSIUM 3.5 mmol/L (3.5-5.1); SODIUM 136 mmol/L (136-145)
[2019-03-04 04:03] LABS: CALCIUM 9.7 mg/dL (8.4-10.2); MAGNESIUM 1.8 MG/DL (1.3-2.1)
[2019-03-04] MEDS: PIPER-TAZ 3.375 GM 50 ML IV SCH ×3 (05:30→18:24)
[2019-03-04] MEDS: PANTOPRAZOLE SOD 40 MG TABEC PO SCH (09:49)
[2019-03-04] MEDS: ACETAMINOPHEN/CODEINE 300MG - 30MG TAB PO PRN (13:38)
[2019-03-04] MEDS ORDERED: LIDOCAINE HCL 2% JELLY 5 ML TUBE TOP PRN (20:15)
[2019-03-04] MEDS: LEVOFLOXACIN 500MG/D5W 100ML IV SCH (22:04)
[2019-03-05] VITALS (8 sets, daily range): BP systolic 107–167; BP diastolic 70–98
[2019-03-05] MEDS: PIPER-TAZ 3.375 GM 50 ML IV SCH ×4 (00:55→17:13)
[2019-03-05] MEDS: METRONIDAZOLE 500MG/NS 100ML 100 ML IV SCH ×4 (02:25→20:53)
[2019-03-05 02:45] LABS: BASOPHILS % 0.5 % (0.0-1.0); EOSINOPHILS # (AUTO) 0.1 (0.0-0.4); HEMATOCRIT 35.9 % (34.2-44.1); HEMOGLOBIN 11.6 g/dL (12.0-16.0); LYMPHOCYTES # (AUTO) 2.2 (1.0-3.2); LYMPHOCYTES % 34.2 % (18.0-39.1); MEAN CORPUSCULAR HEMOGLOBIN 27.5 pg (28-32); MEAN CORPUSCULAR HGB CONC 32.3 g/dL (31-35); MEAN CORPUSCULAR VOLUME 85.1 fL (81-99); MONOCYTES # (AUTO) 0.5 (0.2-0.8); MONOCYTES % 7.8 % (4.4-11.3); NEUTROPHILS # (AUTO) 3.6 (2.1-6.9); NEUTROPHILS % 55.3 % (38.7-80.0); PLATELET COUNT 254 x10e3/uL (140-360); RED BLOOD COUNT 4.22 x10e6/uL (3.6-5.1)
[2019-03-05 03:03] LABS: ANION GAP 16.6 mmol/L (8-16); BLOOD UREA NITROGEN 6 mg/dL (7-26); BUN/CREATININE RATIO 9 (6-25); CALCIUM 9.6 mg/dL (8.4-10.2); CARBON DIOXIDE 21 mmol/L (22-29); CHLORIDE 106 mmol/L (98-107); CREATININE, SERUM 0.67 mg/dL (0.57-1.11); EST GLOMERULAR FILTRATION RATE > 60 ML/MIN (60-); GLUCOSE 95 mg/dL (74-118); MAGNESIUM 1.9 MG/DL (1.3-2.1); POTASSIUM 3.6 mmol/L (3.5-5.1); SODIUM 140 mmol/L (136-145)
[2019-03-05] MEDS ORDERED: PEG (High)/E-LYTE SOLN 4,000 ML BTL PO NR (07:00)
[2019-03-05] MEDS: PANTOPRAZOLE SOD 40 MG TABEC PO SCH (09:29)
[2019-03-05] MEDS ORDERED: SODIUM CHLORIDE 0.9% 250ML 250 ML ONE (20:47)
[2019-03-06] VITALS (7 sets, daily range): BP systolic 117–145; BP diastolic 71–96
[2019-03-06] MEDS: PIPER-TAZ 3.375 GM 50 ML IV SCH ×5 (00:48→20:05)
[2019-03-06] MEDS: METRONIDAZOLE 500MG/NS 100ML 100 ML IV SCH ×4 (02:20→21:47)
[2019-03-06 02:41] LABS: BASOPHILS % 0.4 % (0.0-1.0); EOSINOPHILS # (AUTO) 0.1 (0.0-0.4); EOSINOPHILS % 1.8 % (0.0-6.0); HEMATOCRIT 35.9 % (34.2-44.1); HEMOGLOBIN 12.1 g/dL (12.0-16.0); LYMPHOCYTES # (AUTO) 2.6 (1.0-3.2); LYMPHOCYTES % 35.1 % (18.0-39.1); MEAN CORPUSCULAR HEMOGLOBIN 27.7 pg (28-32); MEAN CORPUSCULAR HGB CONC 33.7 g/dL (31-35); MEAN CORPUSCULAR VOLUME 82.2 fL (81-99); MONOCYTES # (AUTO) 0.7 (0.2-0.8); MONOCYTES % 8.9 % (4.4-11.3); NEUTROPHILS % 53.7 % (38.7-80.0); PLATELET COUNT 329 x10e3/uL (140-360); RED BLOOD COUNT 4.37 x10e6/uL (3.6-5.1); RED CELL DISTRIBUTION WIDTH 12.7 % (11.7-14.4)
[2019-03-06 02:53] LABS: ANION GAP 16.2 mmol/L (8-16); BLOOD UREA NITROGEN 5 mg/dL (7-26); BUN/CREATININE RATIO 8 (6-25); CALCIUM 9.6 mg/dL (8.4-10.2); CARBON DIOXIDE 22 mmol/L (22-29); CHLORIDE 105 mmol/L (98-107); CREATININE, SERUM 0.64 mg/dL (0.57-1.11); EST GLOMERULAR FILTRATION RATE > 60 ML/MIN (60-); GLUCOSE 93 mg/dL (74-118); POTASSIUM 3.2 mmol/L (3.5-5.1); SODIUM 140 mmol/L (136-145)
[2019-03-06] MEDS: ONDANSETRON HCL INJ 2MG/ML 2ML 2 MG/ML VIAL IV PRN (06:29)
[2019-03-06] MEDS: PANTOPRAZOLE SOD 40 MG TABEC PO SCH (07:30)
[2019-03-06] MEDS ORDERED: ONDANSETRON HCL INJ 2MG/ML 2ML 2 MG/ML VIAL ONE ×2 (14:52→18:46)
[2019-03-06] MEDS ORDERED: NEOSTIGMINE 1 MG/ML 10ML VIAL ONE (14:52)
[2019-03-06] MEDS ORDERED: GLYCOPYRROLATE INJ 0.2 MG/ML VIAL ONE (14:52)
[2019-03-06] MEDS ORDERED: LIDOCAINE HCL 2% LOCAL INJ 5 ML SDV VIAL INJ ONE (14:52)
[2019-03-06] MEDS ORDERED: ROCURONIUM BROMIDE 10 MG/ML 5ML VIAL ONE (14:52)
[2019-03-06] MEDS ORDERED: SEVOFLURANE INHAL SOLN 250 ML PEN BTL ONE (14:52)
[2019-03-06] MEDS ORDERED: DEXAMETHASONE SOD PHOS INJ 4 MG/ML VIAL ONE (14:52)
[2019-03-06] MEDS ORDERED: PROPOFOL IV EMULSION 10 MG/ML 20 ML VIAL ONE (14:52)
[2019-03-06] MEDS ORDERED: BUPIVACAINE 0.5%/EPI 30 ML SDV INJ ONE (15:17)
[2019-03-06] MEDS ORDERED: ONDANSETRON HCL INJ 2MG/ML 2ML 2 MG/ML VIAL IV PRN (17:45)
[2019-03-06] MEDS ORDERED: HYDROMORPHONE 1MG/1ML INJ ONE ×2 (18:24→19:10)
[2019-03-06] MEDS ORDERED: MORPHINE SULFATE INJ 4 MG/ML INJ 1ML IV PRN (18:30)
[2019-03-06] MEDS ORDERED: FENTANYL CITRATE/PF 100MCG/2 ML INJ ONE (19:12)
[2019-03-06] MEDS ORDERED: MIDAZOLAM HCL 2 MG/2 ML VIAL ONE (19:12)
[2019-03-06] MEDS: LACTATED RINGER'S 1,000 ML IV SCH (19:59)
[2019-03-06] MEDS ORDERED: PANTOPRAZOLE 40 MG 10ML VIAL IV STA (21:19)
[2019-03-06] MEDS: ACETAMINOPHEN/CODEINE 300MG - 30MG TAB PO PRN (21:43)
[2019-03-06] MEDS: HYDROMORPHONE 1MG/1ML INJ IV PRN (23:14)
[2019-03-07] VITALS (8 sets, daily range): BP systolic 104–156; BP diastolic 55–93
[2019-03-07] MEDS: PIPER-TAZ 3.375 GM 50 ML IV SCH ×4 (01:07→17:13)
--- NOTE | 2019-03-07 02:05 | Operative Report ---
DATE OF PROCEDURE: 03/06/2019 SURGEON: Jeyson Hare MD PREOPERATIVE DIAGNOSIS: Colovaginal fistula. POSTOPERATIVE DIAGNOSIS: Colovaginal fistula. OPERATIVE PROCEDURES: Laparoscopic splenic flexure mobilization and open sigmoid resection and repair of colovaginal fistula. ANESTHESIA: General, Dr. Ny. INDICATION: A 58-year-old female with 1-week history of abdominal pain and fecal drainage from the vagina. The patient was found to have a colovaginal fistula and she had consented for sigmoid resection and repair of the fistula. PROCEDURE FINDING: Colovaginal fistula at the vaginal cuff post hysterectomy. DESCRIPTION OF PROCEDURE: The patient was brought to the OR and intubated. The abdomen was prepped with alcohol and draped in sterile fashion. She was then repositioned to the lithotomy. The perineum also was prepped with Betadine and draped in a sterile fashion. An infraumbilical incision is made and a 10-mm port inserted. Insufflation then began under direct vision. Other port site placed in the epigastric and suprapubic region. Laparoscopy examination revealed adhesions from prior operation. The splenic flexure is mobilized along the left paracolic gutter using the LigaSure. Dissection was carried from the sigmoid colon along the paracolic gutter to the splenic flexure, which was then taken down under direct vision along with the distal transverse colon, preserving the spleen. At this point, we proceeded to make a lower midline incision through the prior hysterectomy scar entering the peritoneal cavity. Adhesions from the omentum and small bowel to the pelvis were taken down with the Bovie. The colon was then exposed. It was noted to be adherent to the vaginal cuff slightly to the left of the cuff. Using cautery, the adhesion between the sigmoid colon and the vaginal cuff was revealing a small connection, which is a fistula. We then proceeded to identify the vaginal cuff. No large opening is encountered. Therefore, no stitches required. Sigmoid resection was carried out by exposing the rectosigmoid colon junction creating a window in the mesentery and transecting the distal end with the SHANTA stapler. Proximal to the fistula, the sigmoid colon was transected using the same stapler approximately 10 cm proximal to the inflamed area. The mesentery to the corresponding sigmoid colon is controlled with the LigaSure and the specimen removed. Operative field was then irrigated. Hemostasis achieved. Approximately 5 cm from the staple end of the left colon, we made a small colotomy on the anti-mesenteric border of the colon to fit the anvil of a 25-Greek EEA instrument. A pursestring of 2-0 Prolene was used to place around the colotomy and tie around the shaft of the anvil. The instrument was then passed through the anal opening and exited on the anterior wall of the rectum approximately 5-6 cm proximal to the rectal staple line and the EEA instrument was mated with the anvil and the non tension anastomosis was carried out. Insufflation was given through the anus to test the anastomosis, which revealed no evidence of leakage and reinforcement anteriorly with Lembert stitch of 3-0 silk were carried out. Operative field was then irrigated with saline solution. Hemostasis achieved. The omentum was then brought to the field of the pelvic space interfacing between the anastomosis and the vaginal cuff to prevent recurrence. A 19-Greek Shay drain was also placed in the pelvis and taken out through a separate stab wound incision in the right lower quadrant. The operative field was then checked for hemostasis. With this achieved, the fascial closure was done with a running #1 PDS. Skin was closed with vin. The patient was extubated and transported in guarded condition to recovery room. Blood loss, 50 mL. Jeyson Hare MD DNOsmani/MODL /[id number]
[2019-03-07] MEDS: METRONIDAZOLE 500MG/NS 100ML 100 ML IV SCH ×4 (02:16→20:46)
[2019-03-07] MEDS: HYDROMORPHONE 1MG/1ML INJ IV PRN ×5 (04:25→22:31)
[2019-03-07 06:07] LABS: BASOPHILS % 0.1 % (0.0-1.0); EOSINOPHILS % 0.1 % (0.0-6.0); HEMATOCRIT 32.4 % (34.2-44.1); HEMOGLOBIN 10.7 g/dL (12.0-16.0); LYMPHOCYTES # (AUTO) 1.8 (1.0-3.2); LYMPHOCYTES % 19.3 % (18.0-39.1); MEAN CORPUSCULAR HEMOGLOBIN 27.4 pg (28-32); MEAN CORPUSCULAR VOLUME 83.1 fL (81-99); MONOCYTES % 10.8 % (4.4-11.3); NEUTROPHILS # (AUTO) 6.6 (2.1-6.9); NEUTROPHILS % 69.5 % (38.7-80.0); PLATELET COUNT 288 x10e3/uL (140-360); RED CELL DISTRIBUTION WIDTH 13.2 % (11.7-14.4)
[2019-03-07] MEDS: LACTATED RINGER'S 1,000 ML IV SCH ×3 (06:13→17:14)
[2019-03-07 06:26] LABS: ANION GAP 14.5 mmol/L (8-16); BLOOD UREA NITROGEN 8 mg/dL (7-26); BUN/CREATININE RATIO 13 (6-25); CALCIUM 8.7 mg/dL (8.4-10.2); CARBON DIOXIDE 22 mmol/L (22-29); CHLORIDE 101 mmol/L (98-107); CREATININE, SERUM 0.62 mg/dL (0.57-1.11); EST GLOMERULAR FILTRATION RATE > 60 ML/MIN (60-); GLUCOSE 106 mg/dL (74-118); MAGNESIUM 1.6 MG/DL (1.3-2.1); PHOSPHORUS 3.7 MG/DL (2.3-4.7); POTASSIUM 3.5 mmol/L (3.5-5.1); SODIUM 134 mmol/L (136-145)
[2019-03-07] MEDS: PANTOPRAZOLE SOD 40 MG TABEC PO SCH (08:09)
[2019-03-07] MEDS ORDERED: MAGNESIUM SULF 1GRAM/DEXTROSE 100 ML IV ONE (12:30)
[2019-03-08] VITALS (8 sets, daily range): BP systolic 98–160; BP diastolic 57–107
[2019-03-08] MEDS: PIPER-TAZ 3.375 GM 50 ML IV SCH ×5 (00:03→21:00)
[2019-03-08] MEDS: ACETAMINOPHEN/CODEINE 300MG - 30MG TAB PO PRN (01:10)
[2019-03-08] MEDS: LACTATED RINGER'S 1,000 ML IV SCH ×2 (01:45→05:20)
[2019-03-08] MEDS: METRONIDAZOLE 500MG/NS 100ML 100 ML IV SCH ×4 (01:59→21:55)
[2019-03-08] MEDS: HYDROMORPHONE 1MG/1ML INJ IV PRN (02:31)
[2019-03-08 02:42] LABS: BASOPHILS % 0.2 % (0.0-1.0); EOSINOPHILS # (AUTO) 0.1 (0.0-0.4); EOSINOPHILS % 1.3 % (0.0-6.0); HEMATOCRIT 31.5 % (34.2-44.1); HEMOGLOBIN 10.3 g/dL (12.0-16.0); LYMPHOCYTES # (AUTO) 3.1 (1.0-3.2); LYMPHOCYTES % 38.2 % (18.0-39.1); MEAN CORPUSCULAR HEMOGLOBIN 27.5 pg (28-32); MEAN CORPUSCULAR HGB CONC 32.7 g/dL (31-35); MEAN CORPUSCULAR VOLUME 84.2 fL (81-99); MONOCYTES # (AUTO) 0.7 (0.2-0.8); NEUTROPHILS # (AUTO) 4.2 (2.1-6.9); NEUTROPHILS % 51.1 % (38.7-80.0); PLATELET COUNT 250 x10e3/uL (140-360); RED BLOOD COUNT 3.74 x10e6/uL (3.6-5.1); RED CELL DISTRIBUTION WIDTH 13.2 % (11.7-14.4)
[2019-03-08 03:05] LABS: ANION GAP 12.9 mmol/L (8-16); BLOOD UREA NITROGEN < 5 mg/dL (7-26); CALCIUM 8.6 mg/dL (8.4-10.2); CARBON DIOXIDE 24 mmol/L (22-29); CHLORIDE 104 mmol/L (98-107); CREATININE, SERUM 0.57 mg/dL (0.57-1.11); EST GLOMERULAR FILTRATION RATE > 60 ML/MIN (60-); GLUCOSE 94 mg/dL (74-118); SODIUM 138 mmol/L (136-145)
[2019-03-08 03:14] LABS: BUN/CREATININE RATIO 9 (6-25)
[2019-03-08 03:16] LABS: POTASSIUM 2.9 mmol/L (3.5-5.1)
[2019-03-08] MEDS ORDERED: POTASSIUM CHLORIDE 20 MEQ TAB CR PO STA (03:21)
[2019-03-08] MEDS: ONDANSETRON HCL INJ 2MG/ML 2ML 2 MG/ML VIAL IV PRN ×4 (05:54→20:57)
[2019-03-08] MEDS ORDERED: TYLENOL WITH C1 EACH PO (07:40)
[2019-03-08] MEDS: PANTOPRAZOLE SOD 40 MG TABEC PO SCH (08:30)
[2019-03-08] MEDS: MORPHINE SULFATE INJ 4 MG/ML INJ 1ML IV PRN ×4 (08:30→20:57)
[2019-03-08] MEDS ORDERED: POTASSIUM CHLORIDE 20 MEQ TAB CR PO ONE (12:00)
[2019-03-08] MEDS: HYDROCODONE/APAP 5MG-325MG TAB PO PRN (17:39)
[2019-03-09] VITALS: BP 141/102
[2019-03-09] MEDS: ONDANSETRON HCL INJ 2MG/ML 2ML 2 MG/ML VIAL IV PRN (01:33)
[2019-03-09] MEDS: MORPHINE SULFATE INJ 4 MG/ML INJ 1ML IV PRN (01:35)
[2019-03-09] MEDS: METRONIDAZOLE 500MG/NS 100ML 100 ML IV SCH ×2 (03:25→09:01)
[2019-03-09 04:00] VITALS: BP 134/95
[2019-03-09 04:04] LABS: BASOPHILS % 0.4 % (0.0-1.0); EOSINOPHILS # (AUTO) 0.2 (0.0-0.4); HEMATOCRIT 32.6 % (34.2-44.1); HEMOGLOBIN 10.7 g/dL (12.0-16.0); LYMPHOCYTES # (AUTO) 2.6 (1.0-3.2); LYMPHOCYTES % 34.2 % (18.0-39.1); MEAN CORPUSCULAR HEMOGLOBIN 27.4 pg (28-32); MEAN CORPUSCULAR HGB CONC 32.8 g/dL (31-35); MEAN CORPUSCULAR VOLUME 83.6 fL (81-99); MONOCYTES # (AUTO) 0.6 (0.2-0.8); MONOCYTES % 8.3 % (4.4-11.3); NEUTROPHILS # (AUTO) 4.1 (2.1-6.9); PLATELET COUNT 280 x10e3/uL (140-360); RED CELL DISTRIBUTION WIDTH 13.2 % (11.7-14.4)
[2019-03-09 04:14] LABS: ANION GAP 14.5 mmol/L (8-16); BLOOD UREA NITROGEN 6 mg/dL (7-26); BUN/CREATININE RATIO 11 (6-25); CALCIUM 9.1 mg/dL (8.4-10.2); CARBON DIOXIDE 23 mmol/L (22-29); CHLORIDE 104 mmol/L (98-107); CREATININE, SERUM 0.55 mg/dL (0.57-1.11); EST GLOMERULAR FILTRATION RATE > 60 ML/MIN (60-); GLUCOSE 89 mg/dL (74-118); MAGNESIUM 1.9 MG/DL (1.3-2.1); POTASSIUM 3.5 mmol/L (3.5-5.1); SODIUM 138 mmol/L (136-145)
[2019-03-09] MEDS: PIPER-TAZ 3.375 GM 50 ML IV SCH ×2 (04:30→09:01)
[2019-03-09 08:00] VITALS: BP 122/90
[2019-03-09] MEDS: PANTOPRAZOLE SOD 40 MG TABEC PO SCH (08:00)
[2019-03-09 08:53] VITALS: BP 122/90
[2019-03-09] MEDS: HYDROCODONE/APAP 5MG-325MG TAB PO PRN (11:14)
[2019-03-09 12:07] VITALS: BP 140/97
--- NOTE | 2019-03-11 09:21 | Discharge Summary ---
ADMISSION DIAGNOSES: Colovaginal fistula, diverticulitis, urinary tract infection present on admission, and gastroesophageal reflux disease. DISCHARGE DIAGNOSES: Colovaginal fistula, diverticulitis, urinary tract infection present on admission, and gastroesophageal reflux disease, rule out urinary tract infection plus hypokalemia. History transient ischemic attack, gastroesophageal reflux disease, diverticulitis, and liver disease. SURGICAL HISTORY: Hysterectomy, appendectomy, , and hemorrhoidectomy. FAMILY HISTORY: The patient's sister has diabetes. The patient's uncle had cancer. Two of the patient's sisters had a stroke. SOCIAL HISTORY: Noncontributory. HOSPITAL COURSE: A 58-year-old female admits with complaints of coming out of her vagina. She went to her insole tacker on 02/15/2019, who found a cyst and removed a skin tag from inside her vagina. On Monday, she noticed brown spots on the tissue when she wiped. She thought it was just old blood from the procedure. On when she was peeing, she noticed slimy material coming from her vagina that smelled like . She denies dysuria and fever. On admission, CT of the abdomen and pelvis was done, which showed persistent findings of sigmoid diverticulitis. A colovaginal fistula is suspected. Diverticulitis inflammation abuts the vaginal cuff and there appears to be contrast in the proximal vagina. No evidence of colovesicular fistula. Recommend speculum exam, hepatic steatosis. Surgery was consulted as well as GI. The patient was started on IV antibiotics for diverticulitis. Urine culture came back negative. The patient had a laparoscopic splenic flexure mobilization and open sigmoid resection with repair of colovaginal fistula. After the procedure, the patient had a ADELAIDA drain in place, which was pulled a couple of days later. Prior to discharge, the patient is having soft bowel movements and is urinating. The patient was cleared for discharge to home by Surgery. She will follow up with primary care and Surgery in one to two weeks. The patient understands discharge instructions and agrees to plan. Vital signs stable. The patient afebrile. Dictated by Patricia Mullins NP MD PEMA Evans/MODL /[id number]
== END 2019-03-09 13:00 | disposition home or self-care (01) | DRG 330 ==
LOC: ER 13:31 → ERHOLD 21:23 → MED/SURG 22:21
PROVIDERS: ADMIT Internal Medicine; ATTEND Internal Medicine
PROC: 0DNL4ZZ Release Transverse Colon, Percutaneous Endoscopic Approach (ICD-10-PCS; 2019-03-06)
PROC: 0JQC0ZZ Repair Pelvic Region Subcutaneous Tissue and Fascia, Open Approach (ICD-10-PCS; 2019-03-06)
PROC: 0DBN0ZZ Excision of Sigmoid Colon, Open Approach (ICD-10-PCS; principal; 2019-03-06 15:20)
DX: N82.3 Fistula of vagina to large intestine (principal); K57.32 Diverticulitis of large intestine without perforation or abscess without bleeding; N39.0 Urinary tract infection, site not specified; E87.1 Hypo-osmolality and hyponatremia; N82.4 Other female intestinal-genital tract fistulae; K21.9 Gastro-esophageal reflux disease without esophagitis; E87.6 Hypokalemia; Z83.3 Family history of diabetes mellitus; Z82.3 Family history of stroke; Z80.9 Family history of malignant neoplasm, unspecified; K66.0 Peritoneal adhesions (postprocedural) (postinfection); E83.42 Hypomagnesemia
CPT/HCPCS: 36415; 74177; 80048; 80053; 81001; 83036; 83735; 84100; 84443; 85025; 87086; 88307; 97139; 99284; J1100; J1170; J1956; J2001; J2250; J2270; J2405; J2543; J2710; J3010; J3475; J7030; J7050; J7121; Q9963; Q9967

== ENCOUNTER 2019-04-04 17:04 | Inpatient (IN) | payer BC ==
[~2019-04-04] VITALS: Ht 147.3 cm; Wt 61.2 kg
[~2019-04-04 17:04] MED LIST changes: +OMEPRAZOLE40 MG PO
[2019-04-04] MEDS ORDERED: MORPHINE SULFATE INJ 4 MG/ML INJ 1ML IV STA (17:28)
[2019-04-04] MEDS ORDERED: ONDANSETRON HCL INJ 2MG/ML 2ML 2 MG/ML VIAL IV STA (17:28)
[2019-04-04] MEDS ORDERED: SODIUM CHLORIDE 0.9% 1000ML 1,000 ML IV STA (17:28)
[2019-04-04] MEDS ORDERED: PIPER-TAZ 3.375 GM 50 ML IV STA (17:34)
[2019-04-04] MEDS ORDERED: DIATRIZOATE MEGL/DIATRIZOA SOD 30 ML BTL PO ONE (17:53)
[2019-04-04 18:01] LABS: BASOPHILS % 0.4 % (0.0-1.0); EOSINOPHILS # (AUTO) 0.2 (0.0-0.4); EOSINOPHILS % 2.2 % (0.0-6.0); HEMATOCRIT 36.2 % (34.2-44.1); HEMOGLOBIN 11.7 g/dL (12.0-16.0); LYMPHOCYTES # (AUTO) 2.2 (1.0-3.2); LYMPHOCYTES % 31.6 % (18.0-39.1); MEAN CORPUSCULAR HEMOGLOBIN 27.7 pg (28-32); MEAN CORPUSCULAR HGB CONC 32.3 g/dL (31-35); MEAN CORPUSCULAR VOLUME 85.8 fL (81-99); MONOCYTES # (AUTO) 0.5 (0.2-0.8); MONOCYTES % 6.6 % (4.4-11.3); NEUTROPHILS % 58.9 % (38.7-80.0); PLATELET COUNT 335 x10e3/uL (140-360); RED BLOOD COUNT 4.22 x10e6/uL (3.6-5.1); RED CELL DISTRIBUTION WIDTH 13.8 % (11.7-14.4)
[2019-04-04 18:03] LABS: INR 0.89; PROTHROMBIN TIME 12.6 seconds (11.9-14.5)
[2019-04-04 18:05] LABS: PARTIAL THROMBOPLASTIN TIME 32.4 seconds (23.8-35.5)
[2019-04-04 18:09] LABS: ALANINE AMINOTRANSFERASE 43 IU/L (0-55); ALBUMIN 3.7 g/dL (3.5-5.0); ALKALINE PHOSPHATASE 100 IU/L (40-150); ANION GAP 13.5 mmol/L (8-16); BLOOD UREA NITROGEN 15 mg/dL (7-26); BUN/CREATININE RATIO 22 (6-25); CALCIUM 9.2 mg/dL (8.4-10.2); CARBON DIOXIDE 24 mmol/L (22-29); CHLORIDE 104 mmol/L (98-107); CREATININE, SERUM 0.69 mg/dL (0.57-1.11); EST GLOMERULAR FILTRATION RATE > 60 ML/MIN (60-); GLUCOSE 118 mg/dL (74-118); POTASSIUM 3.5 mmol/L (3.5-5.1); SODIUM 138 mmol/L (136-145)
[2019-04-04 18:54] LABS: CLARITY,URINE CLEAR (CLEAR); COLOR,URINE YELLOW (YELLOW)
[2019-04-04 18:55] LABS: BILIRUBIN,URINE NEGATIVE (NEGATIVE); KETONES,URINE NEGATIVE (NEGATIVE); LEUKOCYTE ESTERASE ,URINE TRACE (NEGATIVE); PROTEIN,URINE DIPSTICK NEGATIVE (NEGATIVE); URINE UROBILINOGEN 0.2 mg/dL (0.2 - 1)
[2019-04-04] MEDS ORDERED: IOPAMIDOL 370 MG/ML 200 ML INFUS..BTL INJ ONE (18:55)
[2019-04-04] MEDS ORDERED: SODIUM CHLORIDE 0.9% 50ML 50 ML ONE (18:55)
[2019-04-04 19:07] LABS: BACTERIA,URINE FEW /HPF; EPITHELIAL CELLS,URINE RARE /LPF; RBC,URINE 0-5 /HPF (0-5)
[2019-04-04] MEDS ORDERED: SODIUM CHLORIDE 0.9% 1000ML 1,000 ML IV SCH (19:30)
[2019-04-04] MEDS ORDERED: ONDANSETRON HCL INJ 2MG/ML 2ML 2 MG/ML VIAL IV PRN (19:30)
[2019-04-04] MEDS ORDERED: MORPHINE SULFATE 2 MG/ML SYR 1ML IV PRN (19:30)
[2019-04-04] MEDS ORDERED: MORPHINE SULFATE INJ 4 MG/ML INJ 1ML IV PRN ×2 (19:45→23:30)
[2019-04-04] MEDS: PIPER-TAZ 3.375 GM 50 ML IV SCH (20:00)
--- NOTE | 2019-04-04 20:07 | Diagnostic Imaging Report ---
EXAMINATION: CT of the abdomen and pelvis with contrast. TECHNIQUE: Spiral CT images of the abdomen and pelvis were performed from the lung bases to the lesser trochanters after the intravenous administration of 100 cc of Isovue 370 and the oral administration of dilute Gastrografin. Coronal and sagittal reformatted images were obtained. COMPARISON: CT abdomen pelvis 03/02/2019 CLINICAL HISTORY:Lower abdominal pain, rectal bleed, postop 4 weeks DISCUSSION: ABDOMEN/PELVIS: LOWER THORAX:Unremarkable. HEPATOBILIARY: Diffuse decreased attenuation of the hepatic parenchyma consistent with simple cysts. No focal lesions. No intra or extrahepatic biliary ductal dilation. GALLBLADDER: Punctate density in the dependent portion of the gallbladder lumen may represent a tiny stone (series 2, image 27). No wall thickening or pericholecystic fluid. SPLEEN: No splenomegaly. PANCREAS: No focal masses or ductal dilatation. ADRENALS: No adrenal nodules. KIDNEYS/URETERS: No renal or ureteral calculi. Mild to moderate right pelvocaliectasis. No gisela hydronephrosis.. Right extrarenal pelvis. No solid enhancing lesions. Stable subcentimeter hypodense lesions in bilateral kidneys, which are too small to characterize but likely represent small cysts. PELVIC ORGANS/BLADDER: Bladder is unremarkable, without wall thickening or focal lesions. No air is noted in the bladder lumen. Uterus is absent. Linear radiopaque densities extend from the mid sigmoid colon to the right aspect of the vaginal cuff (series 2, image 74 and sagittal image 60). No adnexal masses. PERITONEUM/RETROPERITONEUM: Multiple foci of extraluminal air are noted in the posterior pelvis adjacent to the sigmoid colon (for example series 2, images 71, 68, 67, 66), some of which are adjacent to the distal anastomotic suture. Air foci are also seen between the distal sigmoid and vaginal cuff (series 2, images 73-75) No gisela pneumoperitoneum. No well-defined enhancing fluid collections. LYMPH NODES: No intra-abdominal, retroperitoneal, pelvic or inguinal lymphadenopathy. VESSELS: The celiac trunk,superior and inferior mesenteric and bilateral renal arteries are patent The portal, superior mesenteric and splenic veins are patent. GI TRACT: Oral contrast is noted in the stomach and proximal and mid small bowel. No oral contrast is noted in the large bowel. Postoperative changes with multiple sutures in the distal sigmoid/rectum. There has been marked interval improvement in the previously visualized wall thickening and surrounding inflammatory changes in the mid to distal sigmoid colon when compared to prior exam. No bowel dilation or evidence of obstruction. Appendix is not visualized, however, there are no inflammatory changes in the right lower quadrant. BONES AND SOFT TISSUE: No aggressive lytic lesions. Postoperative changes in the anterior abdominal wall. Small fat-containing abdominal hernia. Soft tissues are otherwise unremarkable. IMPRESSION: 1. Multiple foci of extraluminal air noted in the posterior pelvis adjacent to the sigmoid colon, some of which are adjacent to the distal anastomotic suture. No gisela pneumoperitoneum. Findings highly suggestive of perforation/anastomotic leak. Additional air foci are noted between the sigmoid colon and vaginal cuff. No abscess is identified. 2. Marked interval improvement in the previously visualized wall thickening and surrounding inflammatory changes consistent with diverticulitis in the mid to distal sigmoid colon. 3. Linear hyperdensities extending from the mid sigmoid colon to the right aspect of the vaginal cuff may represent residual contrast from prior examination in the area of suspected enterovaginal fistula, as no contrast given today has reached the large bowel. No foci of air in the bladder to suspect enterovesical fistula. 4. Diffuse hepatic tendinosis. 5. Punctate hyperdensity in the gallbladder lumen may represent a tiny gallstone. Signed by: Dr. Kunal Meade M.D. on 04/04/2019 8:05 PM
[2019-04-04 20:12] LABS: NITRITE,URINE NEGATIVE (NEGATIVE)
[2019-04-04 20:20] VITALS: BP 124/80
--- NOTE | 2019-04-04 21:58 | NUR ---
RECEIVED REPORT FROM LEONARD, ER NURSE. PATIENT ARRIVED VIA STRETCHER WITH DAUGHTER IN LAW AND ACCOMPANIED HER. PATIENT IN PAIN IN ABDOMEN. CALL LIGHT WITHIN REACH.
[2019-04-04 22:00] VITALS: BP 146/103
[2019-04-04 22:02] VITALS: BP 124/80
[2019-04-04] MEDS ORDERED: PNEUMOCOCCAL VACCINE POLYVALENT 23 MCG/0.5 ML VIAL IM SCH (22:52)
[2019-04-04] MEDS ORDERED: INFLUENZA VIRUS VAC SPLIT INJ 0.5 ML SYR IM SCH (22:52)
--- NOTE | 2019-04-04 23:19 | NUR ---
CALLED DR. GONCALVES OFFICE AND TALKED TO DAVID LAZCANO ABOUT PATIENT COMPLAINING OF 10 OUT OF 10 PAIN IN HER RIGHT ABDOMEN TO RIGHT ARM. NENO ORDERED THE MORPHINE BE REDUCED TO 2 MG Q6 AND NORCO 5MG Q6.
[2019-04-04] MEDS: HYDROCODONE/APAP 5MG-325MG TAB PO PRN (23:30)
[2019-04-05] VITALS (9 sets, daily range): BP systolic 104–161; BP diastolic 61–87
[2019-04-05] MEDS ORDERED: PIPER-TAZ 3.375 GM / NS 50ML IV SCH
[2019-04-05] MEDS: PIPER-TAZ 3.375 GM 50 ML IV SCH ×4 (02:00→19:36)
--- NOTE | 2019-04-05 03:05 | NUR ---
DID HOURLY ROUNDING AND PATIENT IN BED. DAUGHTER IN LAW AT THE BEDSIDE.
[2019-04-05 05:46] LABS: BASOPHILS % 0.4 % (0.0-1.0); EOSINOPHILS # (AUTO) 0.2 (0.0-0.4); HEMATOCRIT 35.7 % (34.2-44.1); HEMOGLOBIN 11.3 g/dL (12.0-16.0); LYMPHOCYTES # (AUTO) 3.3 (1.0-3.2); LYMPHOCYTES % 45.4 % (18.0-39.1); MEAN CORPUSCULAR HEMOGLOBIN 27.2 pg (28-32); MEAN CORPUSCULAR HGB CONC 31.7 g/dL (31-35); MONOCYTES # (AUTO) 0.6 (0.2-0.8); MONOCYTES % 7.6 % (4.4-11.3); NEUTROPHILS # (AUTO) 3.1 (2.1-6.9); NEUTROPHILS % 43.5 % (38.7-80.0); PLATELET COUNT 295 x10e3/uL (140-360); RED BLOOD COUNT 4.15 x10e6/uL (3.6-5.1); RED CELL DISTRIBUTION WIDTH 13.8 % (11.7-14.4)
[2019-04-05 06:02] LABS: ALANINE AMINOTRANSFERASE 39 IU/L (0-55); ALBUMIN 3.6 g/dL (3.5-5.0); ALBUMIN/GLOBULIN RATIO 1.1 (0.8-2.0); ALKALINE PHOSPHATASE 76 IU/L (40-150); ANION GAP 11.5 mmol/L (8-16); BLOOD UREA NITROGEN 14 mg/dL (7-26); BUN/CREATININE RATIO 22 (6-25); CALCIUM 9.5 mg/dL (8.4-10.2); CARBON DIOXIDE 25 mmol/L (22-29); CHLORIDE 105 mmol/L (98-107); CREATININE, SERUM 0.63 mg/dL (0.57-1.11); EST GLOMERULAR FILTRATION RATE > 60 ML/MIN (60-); GLUCOSE 77 mg/dL (74-118); POTASSIUM 3.5 mmol/L (3.5-5.1); SODIUM 138 mmol/L (136-145)
[2019-04-05] MEDS ORDERED: MELATONIN 5 MG TABLET PO PRN (06:30)
[2019-04-05] MEDS ORDERED: ACETAMINOPHEN 325 MG TAB PO PRN (06:30)
[2019-04-05] MEDS ORDERED: HYDRALAZINE HCL 20 MG/ML VIAL IV PRN (06:30)
--- NOTE | 2019-04-05 07:10 | NUR ---
BEDSIDE ROUNDS MADE. PT RESTING COMFORTABLY. FAMILY AT BEDSIDE
--- NOTE | 2019-04-05 07:39 | NUR ---
GAVE BEDSIDE SHIFT REPORT TO ONCOMING NURSE. CALL LIGHT WITHIN REACH. PATIENT IN BED.
[2019-04-05] MEDS: D5NS/KCL 20MEQ 1,000 ML IV SCH (08:00)
[2019-04-05] MEDS: FAMOTIDINE 20 MG TAB PO SCH ×2 (09:38→16:30)
--- NOTE | 2019-04-05 15:11 | Consultation ---
DATE OF CONSULTATION: 04/05/2019 CHIEF COMPLAINT: Abdominal pain. HISTORY OF PRESENT ILLNESS: This 58-year-old female one month status post sigmoid resection and repair of colovaginal fistula, complaining of one-day history of lower abdominal pain and diarrhea. No vaginal discharge, fever, or chills. PAST MEDICAL HISTORY: Positive for diverticulitis, colovaginal fistula, and hypertension. PAST SURGICAL HISTORY: Positive for hysterectomy, recent sigmoid resection. ALLERGIES: NO DRUG ALLERGIES. SOCIAL HABITS: She does not smoke or drink. REVIEW OF SYSTEMS: No chest pain or shortness of breath. PHYSICAL EXAMINATION: VITAL SIGNS: Stable, afebrile. GENERAL: She is awake, alert, in mild to moderate discomfort. HEENT: Sclerae anicteric. NECK: Supple. LUNGS: Clear. HEART: Regular rate and rhythm. ABDOMEN: Soft with some guarding tenderness in the suprapubic region with no rebound or tenderness. EXTREMITIES: No cyanosis or edema. LABORATORY DATA: The patient's white cell count 7, hemoglobin 11. Creatinine of 0.6. CT scan show foci of extraluminal air adjacent to sigmoid colon, suspicious for microperforation versus anastomotic leak. ASSESSMENT: Diverticulitis with perforation, no abscess as yet. PLAN: N.p.o., IV antibiotics, we will follow. Jeyson Hare MD DNL/MODL /[id number]
[2019-04-05] MEDS: HYDROCODONE/APAP 5MG-325MG TAB PO PRN (16:20)
--- NOTE | 2019-04-05 17:30 | NUR ---
PT HAD HEADACHE EARLIER BUT IS RESTING QUIETLY AT PRESENT. FAMILY AT BEDSIDE
--- NOTE | 2019-04-05 19:10 | NUR ---
ROUNDS COMPLETED. NO C/O PAIN AT THIS TIME
--- NOTE | 2019-04-05 19:33 | NUR ---
RECEIVED BEDSIDE SHIFT REPORT FROM PREVIOUS NURSE. CALL LIGHT WITHIN REACH. PATIENT IN BED. AT BEDSIDE/
[2019-04-06] VITALS (8 sets, daily range): BP systolic 110–140; BP diastolic 75–98
[2019-04-06] MEDS: PIPER-TAZ 3.375 GM 50 ML IV SCH ×4 (01:34→20:33)
[2019-04-06 03:36] LABS: BASOPHILS % 0.4 % (0.0-1.0); EOSINOPHILS # (AUTO) 0.2 (0.0-0.4); EOSINOPHILS % 4.3 % (0.0-6.0); HEMOGLOBIN 10.8 g/dL (12.0-16.0); LYMPHOCYTES # (AUTO) 2.8 (1.0-3.2); LYMPHOCYTES % 50.5 % (18.0-39.1); MEAN CORPUSCULAR HEMOGLOBIN 27.5 pg (28-32); MEAN CORPUSCULAR HGB CONC 31.8 g/dL (31-35); MEAN CORPUSCULAR VOLUME 86.5 fL (81-99); MONOCYTES # (AUTO) 0.4 (0.2-0.8); MONOCYTES % 7.9 % (4.4-11.3); NEUTROPHILS % 36.7 % (38.7-80.0); PLATELET COUNT 286 x10e3/uL (140-360); RED BLOOD COUNT 3.93 x10e6/uL (3.6-5.1); RED CELL DISTRIBUTION WIDTH 13.7 % (11.7-14.4)
[2019-04-06 03:50] LABS: ANION GAP 11.6 mmol/L (8-16); BLOOD UREA NITROGEN 8 mg/dL (7-26); BUN/CREATININE RATIO 12 (6-25); CALCIUM 9.2 mg/dL (8.4-10.2); CARBON DIOXIDE 23 mmol/L (22-29); CHLORIDE 108 mmol/L (98-107); CREATININE, SERUM 0.65 mg/dL (0.57-1.11); EST GLOMERULAR FILTRATION RATE > 60 ML/MIN (60-); GLUCOSE 89 mg/dL (74-118); MAGNESIUM 1.9 MG/DL (1.3-2.1); POTASSIUM 3.6 mmol/L (3.5-5.1); SODIUM 139 mmol/L (136-145)
--- NOTE | 2019-04-06 07:11 | NUR ---
GAVE BEDSIDE SHIFT REPORT TO ONCOMING NURSE. CALL LIGHT WITHIN REACH. PATIENT IN BED. DAUGHTER IN LAW AT BEDSIDE.
[2019-04-06] MEDS: FAMOTIDINE 20 MG TAB PO SCH ×2 (07:30→14:26)
[2019-04-06] MEDS: D5NS/KCL 20MEQ 1,000 ML IV SCH ×2 (10:00→14:09)
[2019-04-06] MEDS: BENGAY TP SCH (10:58)
--- NOTE | 2019-04-06 19:00 | NUR ---
RECEIVED PATIENT IN BEDSIDE SHIFT REPORT. PATIENT RESTING IN BED AT THIS TIME. A&OX4. NO PAIN REPORTED. NO S&S OF DISTRESS NOTED. BED LOCKED IN LOWEST POSITION, SIDE RAILS UPX2, CALL LIGHT IN REACH. FAMILY MEMBERS AT BEDSIDE.
--- NOTE | 2019-04-06 20:30 | NUR ---
PATIENT COMPLAINS OF PAIN IN BLADDER AREA, BLADDER PALPABLE AND FIRM. PATIENT STATES SHE WAS NOT ABLE TO URINATE WHEN SHE TRIED. PERFORMED BLADDER SCAN, NO MORE THAN 40ML NOTED. TOLD PATIENT TO REPORT IF SHE IS UNABLE TO URINATE AGAIN, SO BLADDER SCAN CAN BE PERFORMED AGAIN. PATIENT VERBALIZED UNDERSTANDING. PAIN MEDICATION GIVEN. Addendum: 04/06/19 at 2144 by Carline Bailey RN PATIENT STATED SHE URINATED "LOTS AND LOTS." SOME PAIN RELIEF REPORTED AFTER. WILL CONTINUE TO MONITOR.
[2019-04-06] MEDS: HYDROCODONE/APAP 5MG-325MG TAB PO PRN (21:12)
[2019-04-07] VITALS: BP 97/60
[2019-04-07] MEDS: PIPER-TAZ 3.375 GM 50 ML IV SCH ×3 (02:34→13:53)
[2019-04-07 03:14] LABS: BASOPHILS % 0.5 % (0.0-1.0); EOSINOPHILS # (AUTO) 0.3 (0.0-0.4); EOSINOPHILS % 4.8 % (0.0-6.0); HEMATOCRIT 32.8 % (34.2-44.1); HEMOGLOBIN 10.8 g/dL (12.0-16.0); LYMPHOCYTES # (AUTO) 2.8 (1.0-3.2); LYMPHOCYTES % 47.6 % (18.0-39.1); MEAN CORPUSCULAR HEMOGLOBIN 28.2 pg (28-32); MEAN CORPUSCULAR HGB CONC 32.9 g/dL (31-35); MEAN CORPUSCULAR VOLUME 85.6 fL (81-99); MONOCYTES # (AUTO) 0.5 (0.2-0.8); MONOCYTES % 8.7 % (4.4-11.3); NEUTROPHILS # (AUTO) 2.2 (2.1-6.9); NEUTROPHILS % 38.2 % (38.7-80.0); PLATELET COUNT 293 x10e3/uL (140-360); RED BLOOD COUNT 3.83 x10e6/uL (3.6-5.1); RED CELL DISTRIBUTION WIDTH 13.9 % (11.7-14.4)
[2019-04-07 03:37] LABS: ALANINE AMINOTRANSFERASE 35 IU/L (0-55); ALBUMIN 3.4 g/dL (3.5-5.0); ALBUMIN/GLOBULIN RATIO 1.1 (0.8-2.0); ALKALINE PHOSPHATASE 60 IU/L (40-150); ANION GAP 11.8 mmol/L (8-16); BLOOD UREA NITROGEN 11 mg/dL (7-26); BUN/CREATININE RATIO 17 (6-25); CALCIUM 9.3 mg/dL (8.4-10.2); CARBON DIOXIDE 22 mmol/L (22-29); CHLORIDE 110 mmol/L (98-107); CREATININE, SERUM 0.64 mg/dL (0.57-1.11); EST GLOMERULAR FILTRATION RATE > 60 ML/MIN (60-); GLUCOSE 88 mg/dL (74-118); POTASSIUM 3.8 mmol/L (3.5-5.1); SODIUM 140 mmol/L (136-145)
[2019-04-07 04:00] VITALS: BP 127/68
[2019-04-07] MEDS: D5NS/KCL 20MEQ 1,000 ML IV SCH (06:01)
[2019-04-07] MEDS: FAMOTIDINE 20 MG TAB PO SCH (06:56)
--- NOTE | 2019-04-07 08:00 | NUR ---
ROUNDS MADE NO C/O PAIN AT THIS TIME. FAMILY AT SIDE
[2019-04-07 08:13] VITALS: BP 129/82
[2019-04-07] MEDS ORDERED: TYLENOL WITH C1 EACH PO (08:40)
[2019-04-07] MEDS ORDERED: METRONIDAZOLE500 MG PO (08:40)
[2019-04-07] MEDS ORDERED: CIPRO500 MG PO (08:40)
[2019-04-07] MEDS: BENGAY TP SCH (09:00)
[2019-04-07 10:23] VITALS: BP 129/82
[2019-04-07 12:21] VITALS: BP 107/58
--- NOTE | 2019-04-07 13:40 | NUR ---
DR LEON TO SEE PT. WILL DISCHARGE LATER
--- NOTE | 2019-04-07 13:45 | NUR ---
Suha KIM AT NURSES STATION AND STATES DR. LEON IS GOING TO DISCHARGE PT.
[2019-04-07] MEDS ORDERED: INFLUENZA VIRUS VAC SPLIT INJ 0.5 ML SYR IM ONE (14:51)
[2019-04-07] MEDS ORDERED: PNEUMOCOCCAL VACCINE POLYVALENT 23 MCG/0.5 ML VIAL ONE (14:53)
--- NOTE | 2019-04-07 15:36 | NUR ---
IV REMOVED EARLIER. DISCHARGE INSTRUCTION GIVEN ALONG WITH PRESCRIPTION. PT ACCOMPANY OUT BY STAFF PER WC. FAMILY AT SIDE.
--- NOTE | 2019-04-08 09:03 | Discharge Summary ---
ADMISSION DIAGNOSES: Possible diverticulitis with perforation versus recent colovaginal fistula repair leak, diverticulitis, gastroesophageal reflux disease, urinary tract infection, present on admission. DISCHARGE DIAGNOSES: Possible diverticulitis with perforation versus recent colovaginal fistula repair leak, diverticulitis, gastroesophageal reflux disease, urinary tract infection, present on admission, rule out urinary tract infection. HISTORY: Colovaginal fistula, diverticulitis, TIA, GERD, liver disease. PAST SURGICAL HISTORY: Hysterectomy, appendectomy, , hemorrhoidectomy, colovaginal fistula repair. FAMILY HISTORY: The patient's sister has diabetes. The patient's uncle has cancer, and two of the patient's sisters had stroke. SOCIAL HISTORY: Noncontributory. HOSPITAL COURSE: A 58-year-old female with past medical history of colovaginal fistula repair and diverticulitis, admits with complaints of lower abdominal pain and rectal bleeding that began yesterday. She had repair of the colovaginal fistula on 03/06/2019 at [facility] by Dr. Hare. Before coming to the ER, she paged the surgeon, who urged her to come to the ER. On admission, CT of the abdomen and pelvis showed multiple foci of extraluminal air noted in the posterior pelvis adjacent to the sigmoid colon. Findings highly suggestive of perforation/anastomotic leak. Additional air foci are noted between the sigmoid colon and vaginal cuff. No abscess identified. Marked improvement in the previously visualized diverticulitis, diffuse hepatic tendinosis. The patient was started on IV Zosyn and Surgery was consulted. Urinalysis initially showed bacteria, but the culture came back negative, so the urine infection was ruled out. The patient was initially kept n.p.o. and then diet advanced as tolerated per Surgery recommendation. After couple days of IV antibiotics, the patient is feeling much better and tolerating a regular diet. Per surgery recommendation, the patient will discharge home on 1-week of antibiotics. She will follow up with primary care in 1 to 2 weeks. The patient and family understand discharge instructions and agrees to plan. Vital signs stable. The patient afebrile. Dictated by Patricia Mullins NP Bruno Young MD PEMA/MODL /[id number]
== END 2019-04-07 15:55 | disposition home or self-care (01) | DRG 378 ==
LOC: ER 17:04 → ERHOLD 19:36 → MED/SURG 22:00
PROVIDERS: ADMIT Internal Medicine; ATTEND Internal Medicine
DX: K57.21 Diverticulitis of large intestine with perforation and abscess with bleeding (principal); K91.89 Other postprocedural complications and disorders of digestive system; K21.9 Gastro-esophageal reflux disease without esophagitis; Z86.73 Personal history of transient ischemic attack (TIA), and cerebral infarction without residual deficits; K76.9 Liver disease, unspecified
CPT/HCPCS: 36415; 74177; 80048; 80053; 81001; 83735; 85025; 85610; 85730; 86850; 86900; 87086; 90732; 99284; J2270; J2405; J2543; Q9967

== ENCOUNTER 2020-08-18 03:37 | Emergency (ER) | payer BC ==
[~2020-08-18] VITALS: Ht 147.3 cm; Wt 61.2 kg
[~2020-08-18 03:37] MED LIST changes: +METRONIDAZOLE500 MG PO
[2020-08-18] MEDS ORDERED: ONDANSETRON HCL INJ 2MG/ML 2ML 2 MG/ML VIAL IV STA (04:11)
[2020-08-18] MEDS ORDERED: SODIUM CHLORIDE 0.9% 1000ML 1,000 ML IV SCH (04:15)
[2020-08-18] MEDS ORDERED: ACETAMINOPHEN 325 MG TAB PO ONE (04:15)
[2020-08-18] MEDS ORDERED: ONDANSETRON HCL INJ 2MG/ML 2ML 2 MG/ML VIAL ONE (04:32)
[2020-08-18] MEDS ORDERED: ACETAMINOPHEN 325 MG TAB ONE (04:32)
[2020-08-18] MEDS ORDERED: SODIUM CHLORIDE 0.9% 1000ML 1,000 ML ONE (04:32)
[2020-08-18] MEDS ORDERED: PENICILLIN G BENZATHINE LA 1.2 MU TBX IM STA (04:57)
[2020-08-18] MEDS ORDERED: ONDANSETRON ODT4 MG PO (05:03)
[2020-08-18] MEDS ORDERED: PENICILLIN G BENZATHINE LA 1.2 MU TBX ONE (05:18)
[2020-08-18] MEDS ORDERED: AZITHROMYCIN250 MG PO (05:32)
[2020-08-18] MEDS ORDERED: DECADRON6 MG PO (05:34)
== END 2020-08-18 06:26 | disposition home or self-care (01) ==
LOC: FSED 04:11
DX: R50.9 Fever, unspecified (principal); J18.9 Pneumonia, unspecified organism; J02.0 Streptococcal pharyngitis; K76.9 Liver disease, unspecified; K21.9 Gastro-esophageal reflux disease without esophagitis; Z87.19 Personal history of other diseases of the digestive system
CPT/HCPCS: 71046; 80053; 83518; 85025; 87400; 99284; J0561; J2405; J7030

== ENCOUNTER 2022-08-02 15:41 | Emergency (ER) | payer BC, OTHER ==
[~2022-08-02] VITALS: Ht 147.3 cm; Wt 61.2 kg
[~2022-08-02 15:41] MED LIST changes: +AZITHROMYCIN250 MG PO; +DECADRON6 MG PO; +ONDANSETRON ODT4 MG PO
[2022-08-02 16:25] LABS: BASOPHILS % 0.4 % (0.0-1.0); EOSINOPHILS # (AUTO) 0.1 (0.0-0.4); EOSINOPHILS % 1.9 % (0.0-6.0); HEMATOCRIT 36.7 % (34.2-44.1); HEMOGLOBIN 12.2 g/dL (12.0-16.0); LYMPHOCYTES # (AUTO) 3.2 (1.0-3.2); LYMPHOCYTES % 47.8 % (18.0-39.1); MEAN CORPUSCULAR HEMOGLOBIN 28.2 pg (28-32); MEAN CORPUSCULAR HGB CONC 33.2 g/dL (31-35); MEAN CORPUSCULAR VOLUME 84.8 fL (81-99); MONOCYTES # (AUTO) 0.4 (0.2-0.8); MONOCYTES % 5.5 % (4.4-11.3); NEUTROPHILS % 44.3 % (38.7-80.0); PLATELET COUNT 308 x10e3/uL (140-360); RED BLOOD COUNT 4.33 x10e6/uL (3.6-5.1)
[2022-08-02 16:35] LABS: INR 0.96; PROTHROMBIN TIME 13.3 seconds (11.9-14.5)
[2022-08-02 16:36] LABS: PARTIAL THROMBOPLASTIN TIME 35.6 seconds (23.8-35.5)
[2022-08-02 16:42] LABS: ALBUMIN/GLOBULIN RATIO 1.1 (0.8-2.0); ANION GAP 16.8 mmol/L (8-16); CALCIUM 9.3 mg/dL (8.4-10.2); CREATININE, SERUM 0.77 mg/dL (0.57-1.11); POTASSIUM 3.8 mmol/L (3.5-5.1)
[2022-08-02 18:36] VITALS: O2SAT 99
== END 2022-08-02 19:12 | disposition home or self-care (01) ==
LOC: ER 15:55
DX: R07.9 Chest pain, unspecified (principal); R10.13 Epigastric pain; K21.9 Gastro-esophageal reflux disease without esophagitis; Z87.19 Personal history of other diseases of the digestive system
CPT/HCPCS: 36415; 71045; 80053; 82550; 84484; 85025; 85610; 85730; 93005; 99284

== ENCOUNTER 2023-02-19 11:36 | Emergency (ER) | payer BC, OTHER ==
[~2023-02-19] VITALS: Ht 147.3 cm; Wt 54.4 kg
[2023-02-19] MEDS ORDERED: ONDANSETRON HCL INJ 2MG/ML 2ML 2 MG/ML VIAL IV STA (12:11)
[2023-02-19] MEDS ORDERED: KETOROLAC TROMETHAMINE 30 MG/ML VIAL IV STA (12:11)
[2023-02-19] MEDS ORDERED: SODIUM CHLORIDE 0.9% 1000ML 1,000 ML IV ONE (12:15)
[2023-02-19 12:32] LABS: BASOPHILS % 0.4 % (0.0-1.0); EOSINOPHILS # (AUTO) 0.1 (0.0-0.4); HEMATOCRIT 40.1 % (34.2-44.1); HEMOGLOBIN 12.7 g/dL (12.0-16.0); LYMPHOCYTES # (AUTO) 2.3 (1.0-3.2); LYMPHOCYTES % 29.3 % (18.0-39.1); MEAN CORPUSCULAR HEMOGLOBIN 27.3 pg (28-32); MEAN CORPUSCULAR HGB CONC 31.7 g/dL (31-35); MEAN CORPUSCULAR VOLUME 86.2 fL (81-99); MONOCYTES # (AUTO) 0.4 (0.2-0.8); MONOCYTES % 4.5 % (4.4-11.3); NEUTROPHILS # (AUTO) 5.1 (2.1-6.9); NEUTROPHILS % 64.7 % (38.7-80.0); PLATELET COUNT 321 x10e3/uL (140-360); RED BLOOD COUNT 4.65 x10e6/uL (3.6-5.1); RED CELL DISTRIBUTION WIDTH 13.4 % (11.7-14.4); WHITE BLOOD COUNT 7.92 x10e3/uL (4.8-10.8)
[2023-02-19 12:47] LABS: ALBUMIN 4.2 g/dL (3.5-5.0); ANION GAP 14.1 mmol/L (8-16); BILIRUBIN,TOTAL 0.4 mg/dL (0.2-1.2); CALCIUM 9.6 mg/dL (8.4-10.2); CREATININE, SERUM 0.71 mg/dL (0.57-1.11); POTASSIUM 5.1 mmol/L (3.5-5.1); TOTAL PROTEIN 8.4 g/dL (6.5-8.1)
[2023-02-19] MEDS ORDERED: IOPAMIDOL 370 MG/ML 100 ML INFUS..BTL INJ ONE (12:58)
[2023-02-19 13:55] LABS: CLARITY,URINE CLEAR (CLEAR); COLOR,URINE YELLOW (YELLOW); GLUCOSE, URINE NEGATIVE (NEGATIVE); LEUKOCYTE ESTERASE ,URINE NEGATIVE (NEGATIVE); NITRITE,URINE NEGATIVE (NEGATIVE); PH,URINE 7.5 (5 - 7); PROTEIN,URINE DIPSTICK NEGATIVE (NEGATIVE)
[2023-02-19 13:56] LABS: BILIRUBIN,URINE NEGATIVE (NEGATIVE); KETONES,URINE NEGATIVE (NEGATIVE); URINE UROBILINOGEN 0.2 mg/dL (0.2 - 1)
[2023-02-19 14:10] LABS: BACTERIA,URINE FEW /HPF; EPITHELIAL CELLS,URINE FEW /LPF; RBC,URINE 0-5 /HPF (0-5)
[2023-02-19 16:37] VITALS: O2SAT 100
== END 2023-02-19 16:40 | disposition home or self-care (01) ==
LOC: ER 12:00
DX: R10.13 Epigastric pain (principal); N28.9 Disorder of kidney and ureter, unspecified; I51.7 Cardiomegaly; K21.9 Gastro-esophageal reflux disease without esophagitis; R94.31 Abnormal electrocardiogram [ECG] [EKG]; Z87.19 Personal history of other diseases of the digestive system
CPT/HCPCS: 36415; 74177; 80053; 81001; 83690; 83880; 84484; 85025; 93005; 99284; J1885; J2405; J7030; Q9967

== ENCOUNTER 2023-03-13 23:04 | Emergency (ER) | payer BC, OTHER ==
[~2023-03-13] VITALS: Ht 147.3 cm; Wt 54.4 kg
[2023-03-13 23:41] LABS: BASOPHILS % 0.5 % (0.0-1.0); EOSINOPHILS # (AUTO) 0.1 (0.0-0.4); EOSINOPHILS % 1.5 % (0.0-6.0); HEMATOCRIT 38.9 % (34.2-44.1); HEMOGLOBIN 12.3 g/dL (12.0-16.0); LYMPHOCYTES % 40.5 % (18.0-39.1); MEAN CORPUSCULAR HEMOGLOBIN 27.3 pg (28-32); MEAN CORPUSCULAR HGB CONC 31.6 g/dL (31-35); MEAN CORPUSCULAR VOLUME 86.4 fL (81-99); MONOCYTES # (AUTO) 0.5 (0.2-0.8); MONOCYTES % 6.1 % (4.4-11.3); NEUTROPHILS # (AUTO) 3.9 (2.1-6.9); NEUTROPHILS % 51.3 % (38.7-80.0); PLATELET COUNT 319 x10e3/uL (140-360); RED CELL DISTRIBUTION WIDTH 12.7 % (11.7-14.4); WHITE BLOOD COUNT 7.51 x10e3/uL (4.8-10.8)
[2023-03-14 00:04] LABS: ALBUMIN 4.1 g/dL (3.5-5.0); ALBUMIN/GLOBULIN RATIO 1.1 (0.8-2.0); ANION GAP 16.4 mmol/L (8-16); BILIRUBIN,TOTAL 0.7 mg/dL (0.2-1.2); CALCIUM 10.4 mg/dL (8.4-10.2); CREATININE, SERUM 0.79 mg/dL (0.57-1.11); TOTAL PROTEIN 7.7 g/dL (6.5-8.1)
[2023-03-14 00:05] LABS: POTASSIUM 3.4 mmol/L (3.5-5.1)
[2023-03-14 00:10] LABS: TROPONIN I 0.006 ng/mL (0-0.300)
[2023-03-14 02:24] LABS: TROPONIN I 0.004 ng/mL (0-0.300)
[2023-03-14 03:05] VITALS: BP 122/72; O2SAT 97
== END 2023-03-14 03:06 | disposition home or self-care (01) ==
LOC: ER 23:13
DX: R07.89 Other chest pain (principal); R10.13 Epigastric pain; K21.9 Gastro-esophageal reflux disease without esophagitis; R94.31 Abnormal electrocardiogram [ECG] [EKG]; Z87.19 Personal history of other diseases of the digestive system
CPT/HCPCS: 36415; 71045; 80053; 82550; 84484; 85025; 93005; 99284; C9113